=== PATIENT | female | born 1935 | race Two or more races ===

== ENCOUNTER 2024-04-09 15:28 | Emergency (ER) | payer SELFPAY ==
[~2024-04-09] VITALS: Ht 160 cm; Wt 81.8 kg
[2024-04-09 15:59] LABS: Basophils # (auto) 0 10 ^3/uL (0-0.2); Basophils % (auto) 0.5 % (0.0-2.0); Eosinophils # (auto) 0.1 10 ^3/uL (0-0.8); Eosinophils % (auto) 1.8 % (0.0-7.0); Hematocrit 37.2 % (36.0-46.0); Hemoglobin 12.5 g/dL (12.2-16.2); Lymphocytes # (auto) 0.9 10 ^3/uL (0.4-5.4); Lymphocytes % (auto) 27.2 % (10.0-50.0); Mean Corpuscular Hemoglobin 30.3 pg (28.0-32.0); Mean Corpuscular Hgb Conc. 33.6 g/dL (32.0-36.0); Monocytes # (auto) 0.2 10 ^3/uL (0-1.3); Monocytes % (auto) 7.4 % (0.0-12.0); Neutrophils % (auto) 63.1 % (37.0-80.0); Nucleated Red Blood Cells % 0.2 %; Red Blood Cells 4.14 10^6/uL (4.0-5.20); Red Cell Distribution Width 14.2 % (11.8-14.3); White Blood Cell 3.2 10^3/uL (4.4-10.8)
[2024-04-09 16:19] LABS: Alanine Aminotransferase 34 U/L (7-40); Albumin 4.1 g/dL (3.2-4.8); Alkaline Phosphatase 140 U/L (46-116); Anion Gap 6 (5-15); Aspartate Aminotransferase 49 U/L (13-40); BUN/Creatinine Ratio 14.7 (10.0-20.0); Bilirubin, Total 1.6 mg/dL (0.2-1.0); Blood Urea Nitrogen 10 mg/dL (9-23); Calcium 9.3 mg/dL (8.5-10.1); Carbon Dioxide 26 mmol/L (20-30); Chloride 108 mmol/L (98-107); Glucose 92 mg/dL (74-106); Potassium 3.6 mmol/L (3.5-5.1); Sodium 140 mmol/L (136-145); Total Protein 6.4 g/dL (5.7-8.2)
[2024-04-09] MEDS: SODIUM CHLORIDE 0.9% 1,000 ML IV ONE (16:21)
[2024-04-09] MEDS: ASPirin 81 mg TAB PO ONE (16:22)
[2024-04-09] MEDS: MECLIZINE HCL 25 MG TAB PO ONE (16:22)
[2024-04-09 16:24] LABS: INR 1.16 (0.9-1.15); Partial Thromboplastin Time 30.5 SEC (24.5-34.5); Prothrombin Time 12.2 sec (9.3-11.8)
[2024-04-09] MEDS ORDERED: ZOFR4T PO (20:38)
[2024-04-09 20:42] VITALS: BP 163/95; PULSE 79; RESP 16; TEMP 98.2; O2SAT 99
[2024-04-09] MEDS: ONDANSETRON ODT 4 MG TAB PO ONE (21:00)
== END 2024-04-09 21:02 | disposition home or self-care (01) ==
LOC: ER 15:28
DX: E86.0 Dehydration (principal); R07.89 Other chest pain; I10 Essential (primary) hypertension; E78.5 Hyperlipidemia, unspecified; F03.90 Unspecified dementia, unspecified severity, without behavioral disturbance, psychotic disturbance, mood disturbance, and anxiety; Z98.890 Other specified postprocedural states; Z79.899 Other long term (current) drug therapy
CPT/HCPCS: 36415; 71045; 80053; 82550; 84484; 85025; 85610; 85730; 93005; 96360; 96361; 99285; J7030; J8597; Q0162

== ENCOUNTER 2024-05-05 17:11 | Emergency (ER) | payer MEDICARE ==
[~2024-05-05] VITALS: Ht 157.5 cm; Wt 59.9 kg
[~2024-05-05 17:11] MED LIST: ZOFR4T PO
[2024-05-05 19:13] LABS: Basophils # (auto) 0 10 ^3/uL (0-0.2); Basophils % (auto) 0.4 % (0.0-2.0); Eosinophils # (auto) 0 10 ^3/uL (0-0.8); Eosinophils % (auto) 1.3 % (0.0-7.0); Hematocrit 38.8 % (36.0-46.0); Hemoglobin 12.9 g/dL (12.2-16.2); Lymphocytes # (auto) 0.9 10 ^3/uL (0.4-5.4); Lymphocytes % (auto) 26.4 % (10.0-50.0); Mean Corpuscular Hemoglobin 29.5 pg (28.0-32.0); Mean Corpuscular Hgb Conc. 33.2 g/dL (32.0-36.0); Monocytes # (auto) 0.3 10 ^3/uL (0-1.3); Neutrophils # (auto) 2.1 10 ^3/uL (1.6-8.6); Neutrophils % (auto) 61.9 % (37.0-80.0); Red Blood Cells 4.36 10^6/uL (4.0-5.20); Red Cell Distribution Width 14.6 % (11.8-14.3); White Blood Cell 3.4 10^3/uL (4.4-10.8)
[2024-05-05 19:26] LABS: Alanine Aminotransferase 11 U/L (7-40); Alkaline Phosphatase 137 U/L (46-116); Anion Gap 6 (5-15); Aspartate Aminotransferase 26 U/L (13-40); BUN/Creatinine Ratio 16.4 (10.0-20.0); Blood Urea Nitrogen 11 mg/dL (9-23); Calcium 9.5 mg/dL (8.7-10.4); Carbon Dioxide 25 mmol/L (20-30); Chloride 108 mmol/L (98-107); Glucose 96 mg/dL (74-106); Potassium 4.3 mmol/L (3.5-5.1); Sodium 139 mmol/L (136-145)
[2024-05-05 19:27] LABS: Albumin 4.2 g/dL (3.2-4.8); Bilirubin, Total 1.4 mg/dL (0.2-1.0); Total Protein 6.6 g/dL (5.7-8.2)
[2024-05-05 19:42] LABS: Urine Bacteria FEW /hpf (None Seen); Urine Blood 2+ /uL (Negative); Urine Clarity Clear (Clear); Urine Color Yellow (Yellow); Urine Hyaline Cast FEW /lpf (0 - 2); Urine Mucus FEW (None Seen); Urine Protein, UAD 1+ (Negative); Urine Urobilinogen 8 mg/dL (Negative); Urine WBC 69 /hpf (0 - 5)
[2024-05-05] MEDS ORDERED: DICL1GEL59 TOP (22:20)
[2024-05-05] MEDS ORDERED: CEPH500T PO (22:20)
[2024-05-05 22:40] VITALS: BP 156/109; PULSE 99; RESP 18; TEMP 98.4; O2SAT 99
[2024-05-05] MEDS: ACETAMINOPHEN 500 MG TAB PO ONE (22:46)
[2024-05-05] MEDS: hydrALAZINE HCL 10 MG TAB PO ONE (22:46)
[2024-05-05] MEDS: cefTRIAXone SOD 1,000 MG VL IM ONE (22:46)
== END 2024-05-05 23:17 | disposition home or self-care (01) ==
LOC: ER 17:11
DX: N39.0 Urinary tract infection, site not specified (principal); M25.512 Pain in left shoulder; I10 Essential (primary) hypertension; E78.5 Hyperlipidemia, unspecified; E03.9 Hypothyroidism, unspecified; Z90.49 Acquired absence of other specified parts of digestive tract; Z90.89 Acquired absence of other organs
CPT/HCPCS: 36415; 70450; 80053; 81001; 82962; 83880; 84484; 85025; 93005; 96372; 99285; J0696

== ENCOUNTER 2024-11-15 14:48 | Inpatient (IN) | payer OTHER ==
[~2024-11-15] VITALS: Ht 165.1 cm; Wt 63.9 kg
[~2024-11-15 14:48] MED LIST changes: +CEPH500T PO; +DICL1GEL59 TOP
--- NOTE | 2024-11-15 15:05 | ED.PDOC ---
History of Present Illness HPI Comments 89Y F with PMHx HTN, HLD, liver disease, thyroid disease, and dementia presents to ED via EMS for chief complaint back pain. Per EMS, pt had a fall last week while cleaning her home. Today, pt voiced to daughter that she felt weak. Pt's daughter then called 911. Upon ED arrival, pt denies all symptoms including back pain, chest pain, and SOB. However, pt was tender on rt upper thigh and lumbar spine. No other symptoms reported. Chief Complaint: Back Pain Time Seen by MD: 14:50 Reviewed Notes: Nurses Notes, Gun Mechanic Notes, Medications, Allergies Allergies: Coded Allergies: NO KNOWN ALLERGIES (Unverified , 05/05/24) Home Meds Active Scripts Diclofenac Sodium (Topical) (Voltaren Arthritis Pain) 1 % Gel, 1 % TOP Q8HP PRN, #100 GRAMS apply to L shoulder tid prn pain Prov:BHAVESH SANTANA MD 05/05/24 Cephalexin Monohydrate (Cephalexin) 500 Mg Tab, 1 TAB PO QID for 10 Days, #40 TAB Prov:BHAVESH SANTANA MD 05/05/24 Ondansetron Odt 4MG Tab (ZOFRAN PO) 4 Mg Tb, 4 MG PO BID for 5 Days, #10 TAB 0 Refills ODT TAB-DISSOLVE IN MOUTH, THEN SWALLOW Prov:DAVID CABAN MD 04/09/24 Information Source: Patient, Emergency Med Personnel Mode of Arrival: EMS Severity: Mild Timing: Hours Duration: Since onset Past Medical History PAST MEDICAL HISTORY: Dementia, High Lipids, HTN, Liver, Thyroid Surgical History: Appendectomy, Cholecystectomy ORTHOTIC TECHNICIAN History: No Pertinent ORTHOTIC TECHNICIAN History Family History Family History: Reviewed,noncontributory to illness Social History Smoker: Non-Smoker Alcohol: Denies ETOH Use Drugs: Denies Drug Use Lives In: Home Constitutional: denies: chills, diaphoresis, fatigue, fever, malaise, sweats, weakness, others EENTM: denies: blurred vision, double vision, ear bleeding, ear discharge, ear drainage, ear pain, ear ringing, eye pain, eye redness, hearing loss, mouth pain, mouth swelling, nasal discharge, nose bleeding, nose congestion, nose pain, photophobia, tearing, throat pain, throat swelling, voice changes, others Respiratory: denies: cough, hemoptysis, orthopnea, SOB at rest, shortness of breath, SOB with excertion, stridor, wheezing, others Cardiovascular: denies: chest pain, dizzy spells, diaphoresis, Dyspnea on exertion, edema, irregular heart beat, left arm pain, lightheadedness, palpitations, PND, syncope, others Gastrointestinal: denies: abdomen distended, abdominal pain, blood streaked bowels, constipated, diarrhea, dysphagia, difficulty swallowing, hematemesis, melena, nausea, poor appetite, poor fluid intake, rectal bleeding, rectal pain, vomiting, others Genitourinary: denies: abnormal vagina bleeding, burning, dyspareunia, dysuria, flank pain, frequency, hematuria, incontinence, pain, , vagina discharge, urgency, others Neurological: denies: dizziness, fainting, headache, left sided numbness, left sided weakness, numbness, paresthesia, pre-existing deficit, right sided numbness, right sided weakness, seizure, speech problems, tingling, tremors, weakness, others Musculoskeletal: reports: back pain; denies: gout, joint pain, joint swelling, muscle pain, muscle stiffness, neck pain, others Integumetry: denies: bruises, change in color, change in hair/nails, dryness, laceration, lesions, lumps, rash, wounds, others Allergic/Immunocompromised: denies: Difficulty Healing, Frequent Infections, Hives, Itching, others Hematologic/Lymphatic: denies: anemia, blood clots, easy bleeding, easy bruising, swollen glands, others Endocrine: denies: excessive hunger, excessive sweating, excessive thirst, excessive urination, flushing, intolerance to cold, intolerance to heat, unexplained weight gain, unexplained weight loss, others Psychiatric: denies: anxiety, bipolar disorder, depression, hopeless, panic disorder, schizophrenia, sleepless, suicidal, others All Other Systems: Reviewed and Negative Physical Exam General Appearance: No Apparent Distress, Normal HEENT: Normal ENT Inspection, Pharynx Normal, TMs Normal Neck: Full Range of Motion, Non-Tender, Normal, Normal Inspection Respiratory: Chest Non-Tender, Lungs Clear, No Accessory Muscle Use, No Respiratory Distress, Normal Breath Sounds Cardiovascular: No Edema, No JVD, No Murmur, No Gallop, Normal Peripheral Pulses, Regular Rate/Rhythm Breast Exam: Deferred Gastrointestinal: No Organomegaly, Non Tender, No Pulsatile Mass, Normal Bowel Sounds, Soft Genitalia: Deferred Pelvic: Deferred Rectal: Deferred Extremities: No calf tenderness, Normal capillary refill, Normal inspection, Normal range of motion, Non-tender, No pedal edema Musculoskeletal : Location: Right Extremity Location: Back (lumbar spine), Thigh Apperance: Normal, Tenderness Neurologic: Alert, director of claims II-XII nml as Tested, No Motor Deficits, Normal Affect, Normal Mood, No Sensory Deficits Cerebellar Function: Normal Reflexes: Normal Skin: Dry, Normal Color, Warm Lymphatic: No Adenopathy Was a procedure done? Was a procedure done?: No Differential Dx Considerations may include: compression fracture, pathologic fracture, herniated disc, contusions, sprain, neurologic injuries X-Ray, Labs, Meds, VS Vital Signs Date Time Temp Pulse Resp B/P (MAP) Pulse Ox O2 Delivery O2 Flow Rate FiO2 11/15/24 15:05 98.2 109 16 130/85 (100) [address] [place] [address] Ph: [phone] DIAGNOSTIC IMAGING Diagnostic Imaging Report : [id number] Signed PATIENT: LNYNE MENDEZ ACCT: [id number] UNIT: [id number] : 1935 LOC: ER ROOM / BED: / AGE / SEX: 89 / F ADM STATUS: REG ER SERVICE [id number] ORDERING PHYSICIAN: ANAND SALCEDO MD PROCEDURE(s): LUMB2 - LUMBAR SPINE 3 VIEW REASON: INJURY ORDER NUMBER(s): [id number], ACCESSION NUMBER(s): [id number] CLINICAL INDICATION: INJURY TECHNIQUE: 3 radiographic views of the lumbar spine were obtained. Comparison: None FINDINGS/IMPRESSION: 5 zme-fea-bzmzhlg lumbar-type vertebrae. Mild exaggeration of the lumbar lordosis. Compression fractures of T11, L1 and L2 with about 20% loss of vertebral body height of T11, 30% loss of vertebral body height of L1 and 10% loss of superior vertebral body height of L2 of unknown chronicity. MRI would be helpful to determine chronicity. Grade 1 retrolisthesis of L2 on L3 and L3 on L4. Multilevel moderate degenerative changes of the thoracic and lumbar spine. Diffuse demineralization. Phleboliths are noted within the pelvis. Moderate to large amount of fecal material within the visualized colon. ATED BY: NANI BAÑUELOS DO DICTATED DATE/TIME: 11/15/241542 SIGNED BY: NANI BAÑUELOS DO SIGNED DATE/TIME: 11/15/241542 CC: [place] [address] Ph: [phone] DIAGNOSTIC IMAGING Diagnostic Imaging Report : [id number] Signed PATIENT: LYNNE MENDEZ ACCT: [id number] UNIT: [id number] : 1935 LOC: ER ROOM / BED: / AGE / SEX: 89 / F ADM STATUS: REG ER SERVICE 145 ORDERING PHYSICIAN: ANAND SALCEDO MD PROCEDURE(s): PELVS - PELVIS AP REASON: INJURY ORDER NUMBER(s): [id number], ACCESSION NUMBER(s): [id number] CLINICAL INDICATION: INJURY TECHNIQUE: Goal radiographic view of the pelvis is obtained. Comparison: None FINDINGS/IMPRESSION: There is no evidence of acute fracture or dislocation. Nuir-iq-xzhwceeo degenerative changes bilateral hips. Diffuse demineralization. Moderate degenerative changes of the lower lumbar spine. Moderate to large amount of fecal material within the visualized colon. Phleboliths are noted within the pelvis. 12 mm calcified density overlying the left iliac wing which may represent a calcified injection granuloma. ATED BY: NANI BAÑUELOS DO DICTATED DATE/TIME: 11/15/241544 SIGNED BY: NANI BAÑUELOS DO SIGNED DATE/TIME: 11/15/24 154 CC: [place] [address] Ph: [phone] DIAGNOSTIC IMAGING Diagnostic Imaging Report : [id number] Signed PATIENT: LYNNE MENDEZ ACCT: [id number] UNIT: [id number] : 1935 LOC: ER ROOM / BED: / AGE / SEX: 89 / F ADM STATUS: REG ER SERVICE 145 ORDERING PHYSICIAN: ANAND SALCEDO MD PROCEDURE(s): RFEM - R FEMUR XRAY REASON: INJURY ORDER NUMBER(s): [id number], ACCESSION NUMBER(s): [id number] CLINICAL INDICATION: INJURY TECHNIQUE: 4 radiographic views of the right femur were obtained. Comparison: None FINDINGS/IMPRESSION: There is no evidence of acute fracture or dislocation. Mild degenerative changes of the right hip The alignment is anatomical. 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 ATED BY: NANI BAÑUELOS DO DICTATED DATE/TIME: 11/15/241545 SIGNED BY: NANI BAÑUELOS DO SIGNED DATE/TIME: 11/15/241545 CC: Time of 1ST Reevaluation: 15:20 Reevaluation 1ST: Unchanged Patient Education/Counseling: Diagnosis, Treatment, Prognosis, Need For Follow Up Family Education/Counseling: Diagnosis, Treatment, Prognosis, Need For Follow Up, No Family Present Additional Information I reviewed the following notes from patient's past medical encounters: [facility] ER 05/05/2024, 04/09/2024 The following tests were ordered, and results were reviewed by me: pelvic x-ray, rt femur x-ray, l-spine x-ray Additional Information was gathered from interviewing the following independent historians: EMS I reviewed and agreed with the following test results read by other providers: pelvic x-ray, rt femur x-ray, l-spine x-ray I discussed treatment and results with medical personnel. pt has not suffered an acute fracture. she has T11-L1,L2 mild compression fractures of unknown chronicity, however, daughter is the lone nonfarm animal caretaker and does not feel comfortable caring for her without another fall. she is requesting for pt eval, hospice eval, and possible placement, if pt's pain cannot be managed and she is not able to improve to the point of going home to be cared for by her Departure 1 Departure Time of Disposition: 16:47 Impression: Primary Impression: Falling Additional Impressions: Compression fracture Intractable back pain Disposition: ADMITTED INPATIENT Admit to: Med Surg Condition: Stable Discharged With: Self, Relative Critical Care Note Critical Care Time?: Yes (55 min-critical care time only) Critical care comment: Due to concerns for patients condition deteriorating, the care required my highest level of attention and readiness to intervene. I assessed the patient, reviewed the medical records, ordered the appropriate tests and treatments, then reassessed for results and responsiveness. I communicated with medical personnel and consultants and formulated a plan of care. Total critical care time excludes any procedures Stability Stability form required: No Heart Score Heart Score: Heart Score Response (Comments) Value History N/A 0 EKG N/A 0 Age N/A 0 Risk Factors N/A 0 Troponin N/A 0 Total 0 I personally scribed for ANAND SALCEDO MD ([email or web address]) on 11/15/24 at 15:05. Electronically submitted by Rachel Easley [email or web address]). I personally scribed for ANAND SALCEDO MD ([email or web address]) on 11/15/24 at 15:50. Electronically submitted by Rachel Easley [email or web address]). I personally scribed for ANAND SALCEDO MD ([email or web address]) on 11/15/24 at 15:51. Electronically submitted by Rachel Easley [email or web address]). I personally scribed for ANAND SALCEDO MD (TAMMI) on 11/15/24 at 15:53. Electronically submitted by Rachel Easley [email or web address]). ANAND SALCEDO MD Nov 15, 2024 15:05
--- NOTE | 2024-11-15 15:46 | DVH ---
CLINICAL INDICATION: INJURY TECHNIQUE: 3 radiographic views of the lumbar spine were obtained. Comparison: None FINDINGS/IMPRESSION: 5 ydw-jso-xfilbqu lumbar-type vertebrae. Mild exaggeration of the lumbar lordosis. Compression fractu res of T11, L1 and L2 with about 20% loss of vertebral body height of T11, 30% loss of vertebral body height of L1 and 10% loss of superior vertebral body height of L2 of unknown chronicity. MRI would b e helpful to determine chronicity. Grade 1 retrolisthesis of L2 on L3 and L3 on L4. Multilevel moderate degenerative changes of the tho racic and lumbar spine. Diffuse demineralization. Phleboliths are noted within the pelvis. Moderate to large amount of fecal material within the visual ized colon.
--- NOTE | 2024-11-15 15:47 | DVH ---
CLINICAL INDICATION: INJURY TECHNIQUE: Goal radiographic view of the pelvis is obtained. Comparison: None FINDINGS/IMPRESSION: There is no evidence of acute fracture or dislocation. Fcor-ow-xntngwxz degenerative changes bilateral hips. Diffuse demineralization. Moderate degenerative changes of the lower lumbar spine. Moderate to large amount of fecal material within the visualized colon. Phleboliths are noted within the pelvis. 12 mm calcified density overlying the left iliac wing which may represent a calcified injection granuloma.
--- NOTE | 2024-11-15 15:48 | DVH ---
CLINICAL INDICATION: INJURY TECHNIQUE: 4 radiographic views of the right femur were obtained. Comparison: None FINDINGS/IMPRESSION: There is no evidence of acute fracture or dislocation. Mild degenerative changes of the right hip The alignment is anatomical. 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
[2024-11-15] MEDS: ONDANSETRON HCL 4 MG/2 ML VIAL IV ONE (18:02)
[2024-11-15] MEDS: MORPHINE SULFATE INJ 2 MG/ml SYRG IV ONE (18:08)
[2024-11-15 18:21] LABS: Basophils # (auto) 0 10 ^3/uL (0-0.2); Basophils % (auto) 0.3 % (0.0-2.0); Eosinophils # (auto) 0 10 ^3/uL (0-0.8); Eosinophils % (auto) 0.8 % (0.0-7.0); Hematocrit 36.3 % (36.0-46.0); Lymphocytes % (auto) 27.6 % (10.0-50.0); Mean Corpuscular Hemoglobin 31.3 pg (28.0-32.0); Mean Corpuscular Hgb Conc. 33.2 g/dL (32.0-36.0); Mean Corpuscular Volume 94.5 fL (80.0-100.0); Monocytes # (auto) 0.3 10 ^3/uL (0-1.3); Neutrophils # (auto) 2.4 10 ^3/uL (1.6-8.6); Neutrophils % (auto) 63.3 % (37.0-80.0); Platelet Count (auto) 132 10^3/uL (140-450); Red Blood Cells 3.84 10^6/uL (4.0-5.20); Red Cell Distribution Width 17.7 % (11.8-14.3); White Blood Cell 3.7 10^3/uL (4.4-10.8)
[2024-11-15 18:31] LABS: Chloride 106 mmol/L (98-107); Sodium 139 mmol/L (136-145)
[2024-11-15 18:32] LABS: Anion Gap 10 (5-15); Carbon Dioxide 23 mmol/L (20-31)
[2024-11-15 18:33] LABS: Calcium 9.6 mg/dL (8.7-10.4)
[2024-11-15 18:37] LABS: BUN/Creatinine Ratio 12.8 (10.0-20.0); Blood Urea Nitrogen 10 mg/dL (9-23); Glucose 89 mg/dL (74-106)
[2024-11-15 18:39] LABS: Potassium 3.4 mmol/L (3.5-5.1)
--- NOTE | 2024-11-15 21:24 | DVHHPRES ---
History of Present Illness Resident Creating Document: NBA SCHULER RESIDENT History of Present Illness This is a 89 years old female with past medical history of hypertension, hyperlipidemia, thyroid disease, depression, dementia presented to the ED with a chief complaint of back pain status post mechanical fall for 1 week prior to this admission. According to the son the patient fall 1 week ago and after fall she is complaining of lower back pain, constant 9/10, nonradiating and associated with generalized weakness and constipation. Son also mentioned they wants to discuss the hospice evaluation of the patient. The patient denies headache, blurry vision, chest pain, shortness of breath, abdominal pain, nausea, vomiting, dysuria, hematuria. Past Medical History Hypertension, depression, dementia, GERD Past Surgical History Appendectomy, stomach surgery Family History None Past Social History Lives with son Nonsmoker, nonalcoholic and never tried any drugs Review of Systems Constitutional: Yes: Weakness; No: Fever, Chills, Sweats, Malaise, Other Eyes: No: Pain, Vision change, Conjunctivae inflammation, Eyelid inflammation, Other, Redness ENT: No: Ear pain, Ear discharge, Nose pain, Nose discharge, Nose congestion, Mouth pain, Mouth swelling, Throat pain, Throat swelling, Other Respiratory: No: Cough, Dry, Shortness of breath, SOB with excertion, Wheezing, Hemoptysis, Pleuritic Pain, Sputum, Wheezing, Other Cardiovascular: Lt Headedness; No: Chest Pain, Palpitations, Orthopnea, Pa roxysmal Noc. Dyspnea, Edema, Other Gastrointestinal: Constipation Genitourinary: No Dysuria, No Frequency, No Incontinence, No Hematuria, No Retention, No Other Musculoskeletal: back pain; No: other, neck pain, shoulder pain, arm pain, hand pain, leg pain, foot pain Skin: No: Rash, Lesions, Jaundice, Bruising, Other Neurological: No: Weakness, Numbness, Incoordination, Change in speech, Confusion, Seizures, Other Allergies: Coded Allergies: NO KNOWN ALLERGIES (Unverified , 05/05/24) Exam Vital Signs Vital Signs Date Time Temp Pulse Resp B/P (MAP) Pulse Ox O2 Delivery O2 Flow Rate FiO2 11/15/24 20:26 98.3 88 112/72 (85) 97 98.3 11/15/24 18:09 20 Exam Physical examination: General Appearance: Alert, Oriented X2, Cooperative, No acute distress HEENT: Atraumatic, PERRLA, EOMI, Mucous membrane moist/pink Respiratory: Clear to auscultation, Normal air movement Cardiovascular: Regular rate, Normal S1, Normal S2, No murmurs, no chest wall tenderness Abdominal: Normal bowel sounds, Soft, No tenderness, No hepatospenomegaly, No masses Extremities: No clubbing, No cyanosis, No edema, Normal pulses, No tenderness/swelling Skin: No rashes, No breakdown, No significant lesion Neuro: Use walker Normal speech, Strength at 5/5 X4 ext, Normal tone, Sensation intact, grossly intact cranial nerves Labs/Xrays Labs Test 11/15/24 18:03 Range/Units White Blood Count 3.7 L 4.4-10.8 10^3/uL Red Blood Count 3.84 L 4.0-5.20 10^6/uL Hemoglobin 12.0 L 12.2-16.2 g/dL Hematocrit 36.3 36.0-46.0 % Mean Corpuscular Volume 94.5 80.0-100.0 fL Mean Corpuscular Hemoglobin 31.3 28.0-32.0 pg Mean Corpuscular Hemoglobin Concent 33.2 32.0-36.0 g/dL Red Cell Distribution Width 17.7 H 11.8-14.3 % Platelet Count 132 L 140-450 10^3/uL Mean Platelet Volume 7.2 6.9-10.8 fL Neutrophils (%) (Auto) 63.3 37.0-80.0 % Lymphocytes (%) (Auto) 27.6 10.0-50.0 % Monocytes (%) (Auto) 8.0 0.0-12.0 % Eosinophils (%) (Auto) 0.8 0.0-7.0 % Basophils (%) (Auto) 0.3 0.0-2.0 % Neutrophils # (Auto) 2.4 1.6-8.6 10 ^3/uL Lymphocytes # (Auto) 1.0 0.4-5.4 10 ^3/uL Monocytes # (Auto) 0.3 0-1.3 10 ^3/uL Eosinophils # (Auto) 0 0-0.8 10 ^3/uL Basophils # (Auto) 0 0-0.2 10 ^3/uL Nucleated Red Blood Cells 0.0 % Sodium Level 139 136-145 mmol/L Potassium Level 3.4 L 3.5-5.1 mmol/L Chloride Level 106 98-107 mmol/L Carbon Dioxide Level 23 20-31 mmol/L Anion Gap 10 5-15 Blood Urea Nitrogen 10 9-23 mg/dL Creatinine 0.78 0.550-1.02 mg/dL Glomerular Filtration Rate Calc 73 >90 mL/min BUN/Creatinine Ratio 12.8 10.0-20.0 Serum Glucose 89 74-106 mg/dL Calcium Level 9.6 8.7-10.4 mg/dL Assessment/Plan Assessment/Plan Assessment and plan: # Intractable back pain, s/p mechanical fall - Plain xray of femur, pelvis and lumbosacral spines demonstrated no acute fracture or dislocation. Compression fracture of T11, L1, L2 and multilevel moderate degenerative changes of thoracic and lumbar spine and diffuse deminera lization. Chondrocalcinosis of hip and knee joint. - IV Toradol 15 mg once - [place] 5/325 mg Q 6 p.r.n. # Possible severe hypothyroidism - TSH is 34.14 - Ordered T3 and T4. # Hypokalemia - Replenished # GERD - Protonix 40 mg p.o. daily # Alzheimer's dementia - Continue Donepezil 5 mg daily and memantine 5 mg daily # DVT prophylaxis - Lovenox 40 mg sc daily Plan discussed with Dr. Hurtado Plan discussed with: Patient, Other Date of Service: Nov 15, 2024 Billing Provider: SAM HURTADO MD Common Visit Codes: 71011-QMSWJBP INP/OBS CARE (HIGH) Secondary Visit Codes: 85997-[id number] CARE PLAN 30 MINUTES [employer] SCHULER RESIDENT Nov 15, 2024 21:24 SAM HURTADO MD Nov 16, 2024 20:50
[2024-11-15] MEDS: KETOROLAC TROMETH 30 MG/ML 1ML VIAL IV ONE (22:59)
[2024-11-15] MEDS: LACTULOSE 20Gm/30ML SOLN PO ONE (22:59)
[2024-11-15] MEDS: POTASSIUM EFFERVESENT TAB 25 MEQ PO ONE (22:59)
[2024-11-15] MEDS: DOCUSATE SOD 100 MG CAP PO SCH (22:59)
[2024-11-15] MEDS: ACETAMINOPHEN 500 MG TAB or CAP PO ONE (23:00)
[2024-11-16] VITALS (8 sets, daily range): BP systolic 110–148; BP diastolic 63–80; PULSE 72–80; RESP 16–18; TEMP 97.8–98.8; O2SAT 93–99
--- NOTE | 2024-11-16 08:27 | DVH ---
CHEST RADIOGRAPH Indication: chest pain Technique: Single frontal view of the chest was obtained COMPARISON: XY CHEST PORTABLE on DOS: 04/09/24 FINDINGS: Lines and Tubes: None Lungs: Clear Pleura: No effusion. No pneumothorax. Cardiomediastinal contours: Unremarkable Bones: Unremarkable IMPRESSION: No acute disease.
[2024-11-16 09:05] LABS: Free T3 2.75 pg/mL (2.3-4.2)
[2024-11-16 09:06] LABS: Free T4 (Free Thyroxine) 0.57 ng/dL (0.89-1.76)
[2024-11-16] MEDS: MEMANTINE HCL 5 MG TAB PO SCH (09:15)
[2024-11-16] MEDS: PANTOPRAZOLE 40 MG TAB PO SCH (09:16)
[2024-11-16] MEDS: ENOXAPARIN SOD 40 MG/0.4 ML SYRINGE SC SCH (09:16)
[2024-11-16] MEDS: LEVOTHYROXINE SODIUM 25 MCG TAB PO ONE (09:30)
[2024-11-16] MEDS: DOCUSATE SOD 100 MG CAP PO ONE (09:30)
[2024-11-16 11:09] LABS: % Iron Saturation 14.6 % (15-50)
[2024-11-16 11:58] LABS: Potassium 4.3 mmol/L (3.5-5.1); Sodium 142 mmol/L (136-145)
[2024-11-16 12:00] LABS: Calcium 9.2 mg/dL (8.7-10.4)
[2024-11-16 12:02] LABS: Chloride 109 mmol/L (98-107)
[2024-11-16 12:03] LABS: Anion Gap 5 (5-15); Carbon Dioxide 28 mmol/L (20-31)
[2024-11-16 12:04] LABS: BUN/Creatinine Ratio 16.7 (10.0-20.0); Blood Urea Nitrogen 14 mg/dL (9-23); Glucose 94 mg/dL (74-106)
[2024-11-16 12:40] LABS: Urine Bacteria FEW /hpf (None Seen); Urine Blood 2+ /uL (Negative); Urine Color Yellow (Yellow); Urine Mucus FEW (None Seen); Urine Protein, UAD TRACE (Negative); Urine Specific Gravity 1.031 (1.001-1.035); Urine Squamous Epithelial Cell FEW /hpf (<5); Urine Urobilinogen 12 mg/dL (Negative); Urine WBC 20 /hpf (0 - 5)
[2024-11-16 12:44] LABS: Urine Clarity Cloudy (Clear)
[2024-11-16] MEDS: HYDROcodone-ACET 5/325MG TAB PO PRN (15:25)
[2024-11-16] MEDS: cefTRIAXone 1GM/50ML D5W 50 ML IV ONE (15:44)
[2024-11-16] MEDS: SERTRALINE HCL 50 MG TAB PO ONE (15:58)
[2024-11-16] MEDS: busPIRone HCL 10 MG TAB PO ONE (15:58)
--- NOTE | 2024-11-16 17:21 | DVHDSRES ---
Discharge Summary Date of Admission Resident Creating Document: CROW BERNAL RESIDENT Nov 15, 2024 at 21:23 Date of Discharge: Nov 16, 2024 Admitting Diagnosis Intractable back pain Labs/Diagnostic Data: Laboratory Results Test 11/16/24 16:50 11/16/24 09:19 11/16/24 07:48 11/15/24 18:03 Urine Color Yellow (Yellow) Urine Clarity Cloudy (Clear) Urine pH 6.0 (5.0-9.0) Urine Specific [place] 1.031 (1.001-1.035) Urine Protein Trace (Negative) Urine Ketones Negative (Negative) Urine Blood 2+ /uL (Negative) Urine Nitrite Negative (Negative) Urine Bilirubin Negative (Negative) Urine Urobilinogen 12 mg/dL (Negative) Urine Leukocyte Esterase 2+ /uL (Negative) Urine RBC 237 /hpf (0 - 4) Urine WBC 20 /hpf (0 - 5) Urine Squamous Epithelial Cells Few /hpf (<5) Urine Calcium Oxalate Crystals Many (None Seen) Urine Bacteria Few /hpf (None Seen) Urine Mucus Few (None Seen) Urine Glucose Normal mg/dL (Normal) Sodium Level 142 mmol/L (136-145) Potassium Level 4.3 mmol/L (3.5-5.1) Chloride Level 109 mmol/L (98-107) Carbon Dioxide Level 28 mmol/L (20-31) Anion Gap 5 (5-15) Blood Urea Nitrogen 14 mg/dL (9-23) Creatinine 0.84 mg/dL (0.550-1.02) Glomerular Filtration Rate Calc 67 mL/min (>90) BUN/Creatinine Ratio 16.7 (10.0-20.0) Serum Glucose 94 mg/dL (74-106) Calcium Level 9.2 mg/dL (8.7-10.4) Iron Level 39 ug/dL (50-170) Total Iron Binding Capacity 268 ug/dL (250-425) Percent Iron Saturation 14.6 % (15-50) Vitamin B12 Level 1108 pg/mL (211-911) Free Thyroxine (T4) Calculated 0.57 ng/dL (0.89-1.76) Free Triiodothyronine (T3) pg/mL 2.75 pg/mL (2.3-4.2) White Blood Count 3.7 10^3/uL (4.4-10.8) Red Blood Count 3.84 10^6/uL (4.0-5.20) Hemoglobin 12.0 g/dL (12.2-16.2) Hematocrit 36.3 % (36.0-46.0) Mean Corpuscular Volume 94.5 fL (80.0-100.0) Mean Corpuscular Hemoglobin 31.3 pg (28.0-32.0) Mean Corpuscular Hemoglobin Concent 33.2 g/dL (32.0-36.0) Red Cell Distribution Width 17.7 % (11.8-14.3) Platelet Count 132 10^3/uL (140-450) Mean Platelet Volume 7.2 fL (6.9-10.8) Neutrophils (%) (Auto) 63.3 % (37.0-80.0) Lymphocytes (%) (Auto) 27.6 % (10.0-50.0) Monocytes (%) (Auto) 8.0 % (0.0-12.0) Eosinophils (%) (Auto) 0.8 % (0.0-7.0) Basophils (%) (Auto) 0.3 % (0.0-2.0) Neutrophils # (Auto) 2.4 10 ^3/uL (1.6-8.6) Lymphocytes # (Auto) 1.0 10 ^3/uL (0.4-5.4) Monocytes # (Auto) 0.3 10 ^3/uL (0-1.3) Eosinophils # (Auto) 0 10 ^3/uL (0-0.8) Basophils # (Auto) 0 10 ^3/uL (0-0.2) Nucleated Red Blood Cells 0.0 % Hemoglobin A1c 5.2 % A1C (<5.7) Thyroid Stimulating Hormone (TSH) 34.14 uIU/mL (0.55-4.78) Other Laboratory Tests 11/16/24 07:48 11/15/24 18:03 Brief Hx & Hospital Course: HPI 89 year old female patient with past medical history of hypertension, hyperlipidemia, hypothyroidism, major depressive disorder, dementia, anxiety, depression who presented to the emergency department with a chief complaint of back pain status post mechanical fall for 1 week prior to admission. Pain was localized in the lower back , 9/10 intensity and nonradiating associated with generalized weakness and constipation. Hospital course Family was looking for some hospice services for which social service director were consulted. Patient was re-evaluate in the afternoon , she was having mild discomfort in the chest likely related with an anxiety episode as she also has history of anxiety and depression, she is currently on home medications for it, buspirone and Zoloft. Urinalysis showed bacteriuria for which the patient was started on ceftriaxone IV. Family wanted to discuss the possibility to send the patient to hospice for which social service director services were ordered in regards of that topic. [facility] patient will be accepted and he will follow up with patient's son regarding transport. Disposition: Patient is stable for discharge to hospice. Case discussed with Dr. Barber Goals of care discussed with the patient for 29 minutes. Operations or Procedures [place] [address] Ph: [phone] DIAGNOSTIC IMAGING Diagnostic Imaging Report : [id number] Signed PATIENT: LYNNE MENDEZ ACCT: [id number] UNIT: [id number] : 1935 LOC: ER ROOM / BED: / AGE / SEX: 89 / F ADM STATUS: REG ER SERVICE 1450 ORDERING PHYSICIAN: ANAND SALCEDO MD PROCEDURE(s): RFEM - R FEMUR XRAY REASON: INJURY ORDER NUMBER(s): [id number], ACCESSION NUMBER(s): [id number] CLINICAL INDICATION: INJURY TECHNIQUE: 4 radiographic views of the right femur were obtained. Comparison: None FINDINGS/IMPRESSION: There is no evidence of acute fracture or dislocation. Mild degenerative changes of the right hip The alignment is anatomical. 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 ATED BY: NANI BAÑUELOS DO DICTATED DATE/TIME: 11/15/24 154 SIGNED BY: NANI BAÑUELOS DO SIGNED DATE/TIME: 11/15/24 154 CC: [place] [address] Ph: [phone] DIAGNOSTIC IMAGING Diagnostic Imaging Report : [id number] Signed PATIENT: LYNNE MENDEZ ACCT: [id number] UNIT: [id number] : 1935 LOC: ER ROOM / BED: / AGE / SEX: 89 / F ADM STATUS: REG ER SERVICE 49 ORDERING PHYSICIAN: ANAND SALCEDO MD PROCEDURE(s): LUMB2 - LUMBAR SPINE 3 VIEW REASON: INJURY ORDER NUMBER(s): [id number], ACCESSION NUMBER(s): [id number] CLINICAL INDICATION: INJURY TECHNIQUE: 3 radiographic views of the lumbar spine were obtained. Comparison: None FINDINGS/IMPRESSION: 5 [id number] lumbar-type vertebrae. Mild exaggeration of the lumbar lordosis. Compression fractures of T11, L1 and L2 with about 20% loss of vertebral body height of T11, 30% loss of vertebral body height of L1 and 10% loss of superior vertebral body height of L2 of unknown chronicity. MRI would be helpful to determine chronicity. Grade 1 retrolisthesis of L2 on L3 and L3 on L4. Multilevel moderate degenerative changes of the thoracic and lumbar spine. Diffuse demineralization. Phleboliths are noted within the pelvis. Moderate to large amount of fecal material within the visualized colon. ATED BY: NANI BAÑUELOS DO DICTATED DATE/TIME: 11/15/24 154 SIGNED BY: NANI BAÑUELOS DO SIGNED DATE/TIME: 11/15/24 154 CC: [place] [address] Ph: [phone] DIAGNOSTIC IMAGING Diagnostic Imaging Report : [id number] Signed PATIENT: LYNNE MENDEZ ACCT: [id number] UNIT: [id number] : 1935 LOC: ER ROOM / BED: / AGE / SEX: 89 / F ADM STATUS: REG ER SERVICE 49 ORDERING PHYSICIAN: ANAND SALCEDO MD PROCEDURE(s): PELVS - PELVIS AP REASON: INJURY ORDER NUMBER(s): [id number], ACCESSION NUMBER(s): [id number] CLINICAL INDICATION: INJURY TECHNIQUE: Goal radiographic view of the pelvis is obtained. Comparison: None FINDINGS/IMPRESSION: There is no evidence of acute fracture or dislocation. [id number] degenerative changes bilateral hips. Diffuse demineralization. Moderate degenerative changes of the lower lumbar spine. Moderate to large amount of fecal material within the visualized colon. Phleboliths are noted within the pelvis. 12 mm calcified density overlying the left iliac wing which may represent a calcified injection granuloma. ATED BY: NANI BAÑUELOS DO DICTATED DATE/TIME: 11/15/241544 SIGNED BY: NANI BAÑUELOS DO SIGNED DATE/TIME: 11/15/241544 CC: [place] [address] Ph: [phone] DIAGNOSTIC IMAGING Diagnostic Imaging Report : [id number] Signed PATIENT: LYNNE MENDEZ ACCT: [id number] UNIT: [id number] : 1935 LOC: [facility] ROOM / BED: [address] [place] [address] AGE / SEX: 89 / F ADM STATUS: ADM IN SERVICE 42 ORDERING PHYSICIAN: NBA SCHULER RESIDENT PROCEDURE(s): CXR1 - CHEST XRAY 1 VIEW REASON: chest pain ORDER NUMBER(s): [id number], ACCESSION NUMBER(s): [id number] CHEST RADIOGRAPH Indication: chest pain Technique: Single frontal view of the chest was obtained COMPARISON: XY CHEST PORTABLE on DOS: 04/09/24 FINDINGS: Lines and Tubes: None Lungs: Clear Pleura: No effusion. No pneumothorax. Cardiomediastinal contours: Unremarkable Bones: Unremarkable IMPRESSION: No acute disease. ATED BY: OCTAVIO TSAI MD DICTATED DATE/TIME: 11/16/24824 SIGNED BY: OCTAVIO TSAI MD SIGNED DATE/TIME: 11/16/24824 CC: Condition at Discharge: Fair Final Diagnosis/Problems List hypertension hyperlipidemia hypothyroidism major depressive disorder, Alzheimer's dementia Generalized anxiety Major depressive disorder Compression fracture of T11, L1, L2 and multilevel moderate degenerative changes of thoracic and lumbar spine and diffuse demineralization. Chondrocalcinosis of hip and knee joint. Hypokalemia,resolved GERD Discharge Disposition: Hospice - Home SNF Discharge Will this Physician continue t: No Discharge Instruct/Medications Diet: Cardiac 2g Na,low cholest Activity: No Restrictions, As Tolerated Discharge Statement: "Patient was advised to return to the ER or call 911 if any headaches, dizziness, shortness of breath, chest pain, abdominal pain, bleeding, fevers, or worsening of medical condition. Patient was counseled about treatment plan, medications, possible side effects, patientverbalized understanding. All questions were answered to the best of my ability. This discharge took greater then 30 minutes in planning, reviewing documentation, counseling the patient, and discussing with other team members." ASSESSMENT ASSESSMENT Assessment alzheimer disease Date of Service: Nov 16, 2024 Billing Provider: FANNIE BARBER MD Common Visit Codes: 24751-RLF/OBS DISCH DAY >30min Secondary Visit Codes: 54570-[id number] CARE PLAN 30 MINUTES CROW BERNAL RESIDENT Nov 16, 2024 17:21 FANNIE BARBER MD Nov 18, 2024 18:19
[2024-11-16] MEDS ORDERED: DONEPEZIL HYDROCHLORIDE 5 MG TAB PO SCH ×2 (22:00)
[2024-11-16] MEDS ORDERED: busPIRone HCL 10 MG TAB PO SCH (22:00)
[2024-11-17] MEDS ORDERED: LEVOTHYROXINE SODIUM 25 MCG TAB PO SCH (06:00)
[2024-11-17] MEDS ORDERED: cefTRIAXone 1GM/50ML D5W 50 ML IV SCH (09:00)
[2024-11-17] MEDS ORDERED: SERTRALINE HCL 50 MG TAB PO SCH (10:00)
== END 2024-11-16 17:17 | disposition hospice, home (50) | DRG 544 ==
LOC: ER 14:48 → EDBD 14:48 → OVERFLOW 21:23 → WEST WING 21:24
PROVIDERS: ADMIT Internal Medicine Geriatric Medicine; ATTEND Internal Medicine Geriatric Medicine
DX: M48.55XA Collapsed vertebra, not elsewhere classified, thoracolumbar region, initial encounter for fracture (principal); I10 Essential (primary) hypertension; E78.5 Hyperlipidemia, unspecified; E87.6 Hypokalemia; K21.9 Gastro-esophageal reflux disease without esophagitis; G30.9 Alzheimer's disease, unspecified; F02.80 Dementia in other diseases classified elsewhere, unspecified severity, without behavioral disturbance, psychotic disturbance, mood disturbance, and anxiety; E03.9 Hypothyroidism, unspecified; F41.1 Generalized anxiety disorder; F32.9 Major depressive disorder, single episode, unspecified; Z90.49 Acquired absence of other specified parts of digestive tract
CPT/HCPCS: 36415; 71045; 72100; 72170; 80048; 81001; 82607; 83036; 83540; 83550; 84439; 84443; 84481; 84484; 85025; 97163; 99291; G0378; J1885; J2405

== ENCOUNTER 2025-02-25 12:08 | Inpatient (IN) | payer OTHER ==
[~2025-02-25] VITALS: Ht 160 cm; Wt 49.5 kg
--- NOTE | 2025-02-25 12:11 | ED.PDOC ---
Hero. trauma (HPI) HPI Comments 89 year old female with PMHx of dementia, liver failure and HTN, presents to the ED via EMS for an evaluation of two unwitnessed falls recently. EMS reports per family on scene, patient was found on the floor at home last night and this morning in the bathroom as well. Family state patient is more altered than usual with EMS declaring A&O x 1 and appears more jaundiced as well. Patient presents with a hematoma to the posterior side of the head and is complaining of bilateral leg pain. No further information obtained due to no family at bedside and patient's mental status. Time Seen by MD: 12:04 Reviewed notes: Nurses Notes, .Net Architect Notes, Medications, Allergies Allergies: Coded Allergies: NO KNOWN ALLERGIES (Unverified , 05/05/24) Home Meds Active Scripts Diclofenac Sodium (Topical) (Voltaren Arthritis Pain) 1 % Gel, 1 % TOP Q8HP PRN, #100 GRAMS apply to L shoulder tid prn pain Prov:BHAVESH SANTANA MD 05/05/24 Cephalexin Monohydrate (Cephalexin) 500 Mg Tab, 1 TAB PO QID for 10 Days, #40 TAB Prov:BHAVESH SANTANA MD 05/05/24 Ondansetron Odt 4MG Tab (ZOFRAN PO) 4 Mg Tb, 4 MG PO BID for 5 Days, #10 TAB 0 Refills ODT TAB-DISSOLVE IN MOUTH, THEN SWALLOW Prov:DAVID CABAN MD 04/09/24 Information Source: Emergency Med Personnel Mode of Arrival: EMS Severity: Moderate Timing: Hours Duration: Since onset Location: (L) Leg, (R) Leg Mechanism: Fall Associated signs and symtoms: Other Past Medical History PAST MEDICAL HISTORY: Dementia, High Lipids, HTN, Liver, Thyroid Surgical History: Appendectomy, Cholecystectomy DESIGN ASSISTANT History: No Pertinent DESIGN ASSISTANT History Family History Family History: Reviewed,noncontributory to illness Social History Smoker: Non-Smoker Alcohol: Denies ETOH Use Drugs: Denies Drug Use Lives In: Home Unable to Obtain due to: Altered Mental Status, Dementia Physical Exam General Appearance: Moderate Distress HEENT: Normal ENT Inspection, Pharynx Normal, TMs Normal Neck: Full Range of Motion, Non-Tender, Normal, Normal Inspection Respiratory: Chest Non-Tender, Lungs Clear, No Accessory Muscle Use, No Respiratory Distress, Normal Breath Sounds Cardiovascular: No Edema, No JVD, No Murmur, No Gallop, Normal Peripheral Pulses, Regular Rate/Rhythm Breast Exam: Deferred Gastrointestinal: No Organomegaly, Non Tender, No Pulsatile Mass, Normal Bowel Sounds, Soft Genitalia: Deferred Pelvic: Deferred Rectal: Deferred Extremities: No calf tenderness, No pedal edema Musculoskeletal : Apperance: Normal Neurologic: Disoriented, No Motor Deficits, No Sensory Deficits Cerebellar Function: NOT DONE Reflexes: NOT DONE Skin: Wounds (Scalp) Peripheral Pulses: 3+ Radial (R), 3+ Radial (L) Lymphatic: No Adenopathy Was a procedure done? Was a procedure done?: Yes Sedation Sedation?: No Chest Tube Indication: Pneumothorax, Hemothorax Procedure: Sterile preparation Anesthetic: Lidocaine Site: R 5th intercostal space, R Mid Axillary Drainage: Blood, Air Notes 350 mL serous fluid had drained. Differential Diagnosis Multiple Trauma: Closed Head Injury, Fractures, Cerebral Contusion, Pulmonary Contusion, Contusion, Hematoma X-Ray, Labs, Meds, VS Vital Signs Date Time Temp Pulse Resp B/P (MAP) Pulse Ox O2 Delivery O2 Flow Rate FiO2 02/25/25 14:17 107 10 126/79 02/25/25 13:47 100 16 154/95 02/25/25 12:51 100 14 94 Room Air* 0 21 02/25/25 12:51 98.1 100 15 141/94 (110) 94 98.1 02/25/25 12:22 98.1 100 16 154/95 (114) 96 98.1 Lab Test 02/25/25 14:40 02/25/25 13:59 02/25/25 13:04 Range/Units Urine Color Dark-yellow Yellow Urine Clarity Clear Clear Urine pH 6.5 5.0-9.0 Urine Specific [place] 1.027 1.001-1.035 Urine Protein Trace H Negative Urine Ketones 1+ H Negative Urine Blood Negative Negative /uL Urine Nitrite Negative Negative Urine Bilirubin Negative Negative Urine Urobilinogen Over Negative mg/dL Urine Leukocyte Esterase 2+ Negative /uL Urine RBC 17 0 - 4 /hpf Urine Microscopic WBC 12 H 0-5 /HPF Urine Squamous Epithelial Cells Few <5 /hpf Urine Bacteria None seen None Seen /hpf Urine Mucus Few None Seen Urine Glucose Normal Normal mg/dL Troponin I High Sensitivity 4 4 </=34 ng/L White Blood Count 4.1 L 4.4-10.8 10^3/uL Red Blood Count 3.72 L 4.0-5.20 10^6/uL Hemoglobin 11.7 L 12.2-16.2 g/dL Hematocrit 34.7 L 36.0-46.0 % Mean Corpuscular Volume 93.4 80.0-100.0 fL Mean Corpuscular Hemoglobin 31.4 28.0-32.0 pg Mean Corpuscular Hemoglobin Concent 33.6 32.0-36.0 g/dL Red Cell Distribution Width 17.1 H 11.8-14.3 % Platelet Count 147 140-450 10^3/uL Mean Platelet Volume 7.4 6.9-10.8 fL Neutrophils (%) (Auto) 72.2 37.0-80.0 % Lymphocytes (%) (Auto) 18.1 10.0-50.0 % Monocytes (%) (Auto) 8.3 0.0-12.0 % Eosinophils (%) (Auto) 1.1 0.0-7.0 % Basophils (%) (Auto) 0.3 0.0-2.0 % Neutrophils # (Auto) 2.9 1.6-8.6 10 ^3/uL Lymphocytes # (Auto) 0.7 0.4-5.4 10 ^3/uL Monocytes # (Auto) 0.3 0-1.3 10 ^3/uL Eosinophils # (Auto) 0 0-0.8 10 ^3/uL Basophils # (Auto) 0 0-0.2 10 ^3/uL Nucleated Red Blood Cells 0.1 % Sodium Level 139 136-145 mmol/L Potassium Level 3.3 L 3.5-5.1 mmol/L Chloride Level 105 98-107 mmol/L Carbon Dioxide Level 26 20-31 mmol/L Anion Gap 8 5-15 Blood Urea Nitrogen 14 9-23 mg/dL Creatinine 0.50 L 0.550-1.02 mg/dL Glomerular Filtration Rate Calc 90 >90 mL/min BUN/Creatinine Ratio 28.0 H 10.0-20.0 Serum Glucose 89 74-106 mg/dL Calcium Level 9.3 8.7-10.4 mg/dL Current Medications Medications (Trade) Dose Ordered Sig/Tali Route Start Time Stop Time Status Last Admin Lorazepam (Ativan Inj) 1 mg ONCE ONCE IV 02/25/25 13:30 02/25/25 13:33 DC 02/25/25 13:46 Morphine Sulfate 2 mg ONCE ONCE IV 02/25/25 13:30 02/25/25 13:33 DC 02/25/25 13:47 Ondansetron HCl (Zofran) 4 mg ONCE ONCE IV 02/25/25 13:30 02/25/25 13:33 DC 02/25/25 13:47 Haloperidol Lactate (Haldol) 5 mg ONCE ONCE IM 02/25/25 14:30 02/25/25 14:31 DC 02/25/25 14:30 Lorazepam (Ativan Inj) 1 mg ONCE ONCE IV 02/25/25 14:30 02/25/25 14:31 DC 02/25/25 14:30 Patient is slightly disoriented. Status post fall. Vitals stable. Moving all extremities. Scalp wound. She is not on blood thinner. Family member state that she was fine until few days ago. Reviewed her history. Continue monitoring. Chest x-ray reviewed pneumothorax pain Chest tube placed. It is actually pneumo with hemo. 350 cc of fluid was drained. Tolerated the procedure. Surgical consultation. Explained to family. [place] approved inpatient admission [id number]. EXAM: CT HEAD WITHOUT CONTRAST INDICATION: fall TECHNIQUE: CT of the head without intravenous contrast. Coronal and sagittal reformatted images are submitted. Radiation Dose : 1. Head: CT Dose: CTDI volume is 50.87 mGy. Dose-length product is 1002.63 mGy*cm The dose indicators for CT are the volume Computed Tomography (CT) Dose Index (CTDIvol) and the Dose Length Product (DLP), and are measured in units of mGy and mGy-cm, respectively. These indicators are not patient dose, but values generated from the CT scanner acquisition factors. The report includes radiation exposure data for exposures received during this examination. All CT scans at this medical facility are performed using dose modulation techniques as appropriate to a performed exam including the following: Automated exposure control was utilized; adjustment of the MA and/or KV according to patient size; and use of iterative reconstruction technique. COMPARISON: CT HEAD WITHOUT CONTRAST on DOS: 05/05/24 FINDINGS: There is no evidence of acute intracranial hemorrhage, extra-axial collection, mass effect, midline shift, herniation or hydrocephalus. There are periventricular and subcortical hypodensities, nonspecific, but likely reflecting sequelae of chronic microvascular ischemic changes. The ventricles, sulci and cisterns are age appropriate. The wright-white differentiation is intact. The visualized paranasal sinuses and mastoid air cells are clear. No depressed calvarial fracture. Right posterior scalp soft tissue swelling and hematoma. IMPRESSION: 1. No evidence of acute intracranial abnormality. 2. Right posterior scalp swelling and hematoma. : XY PELVIS AP CLINICAL INDICATION: fall TECHNIQUE: XY PELVIS AP Comparison: XY PELVIS AP on DOS: 11/15/24 FINDINGS/IMPRESSION: foreshortened right femoral neck. CT suggested : XY CHEST PORTABLE HISTORY: sob COMPARISON: XY CHEST XRAY 1 VIEW on DOS: 11/16/24, XY CHEST PORTABLE on DOS: 04/09/24 TECHNIQUE: Portable AP view of the chest was performed. FINDINGS: There is hazy infiltrate in the right mid to lower lung. There is blunting of the right costophrenic angle. There is a tiny right apical pneumothorax.. There is central peribronchial thickening. The heart is borderline enlarged. The aortic arch is calcific. 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 The right humeral head is high-riding, consistent with significant rotator cuff tendinopathy. There is a displaced right distal clavicle fracture. There is a mildly displaced fracture of the right 7th rib, possibly also right 8th rib. IMPRESSION: Acute fractures of the right distal clavicle, right 7th rib, and possibly also right 8th rib. There is associated tiny right apical pneumothorax. Right basilar infiltrate may be due to atelectasis or lung contusion. There is a small right pleural effusion versus hemothorax. Findings were called to Dr. Silva in the emergency room on 02/25/2025 at 3:08 p.m. CDT. Time of 1ST Reevaluation: 12:10 Reevaluation 1ST: Unchanged Patient Education/Counseling: Other (Patient has history of dementia and appears more altered ) Family Education/Counseling: No Family Present Departure 1 Departure Time of Disposition: 12:25 Impression: Primary Impression: Metabolic encephalopathy Additional Impressions: Head injury Qualified Codes: S09.90XA - Unspecified injury of head, initial encounter Pneumothorax with hemothorax, traumatic Qualified Codes: S27.2XXA - Traumatic hemopneumothorax, initial encounter Rib fracture Qualified Codes: S22.41XA - Multiple fractures of ribs, right side, initial encounter for closed fracture Clavicle fracture Qualified Codes: S42.021A - Displaced fracture of shaft of right clavicle, initial encounter for closed fracture Femur fracture Qualified Codes: S72.91XA - Unspecified fracture of right femur, initial encounter for closed fracture Disposition: ADMITTED INPATIENT Admit to: Med Surg Condition: Guarded Critical Care Note Critical Care Time?: Yes (45 min-critical care time only) Critical care comment: Monitoring for alertness Stability Stability form required: No I personally scribed for RICKIE SILVA MD ([email or web address]) on 02/25/25 at 12:11. Electronically submitted by Mary Damon ([facility]). I personally scribed for RICKIE SILVA MD ([email or web address]) on 02/25/25 at 14:36. Electronically submitted by Mary Damon ([facility]). RICKIE SILVA MD Feb 25, 2025 12:11
[2025-02-25 12:51] VITALS: PULSE 100; RESP 14; O2SAT 94
--- NOTE | 2025-02-25 12:52 | DVH ---
EXAM: CT HEAD WITHOUT CONTRAST INDICATION: fall TECHNIQUE: CT of the head without intravenous contrast. Coronal and sagittal reformatted images are s ubmitted. Radiation Dose : 1. Head: CT Dose: CTDI volume is 50.87 mGy. Dose-length product is 1002.63 mGy*cm The dose indicators for CT are the volume Computed Tomography (CT) Dose Index (CTDIvol) and the Dose Length Product (DLP), and are measured in units of mGy and mGy-cm, respectively. These indicators are not patient dose, but values generated from the CT scanner acquisition factors. The report includes radiation exposure data for exposures received during this examination. All CT scans at this medical facility are performed using dose modulation techniques as appropriate to a performed exam including the following: Automated exposure control was utilized; adjustment of the MA and/or KV according to patient size; and use of iterative reconstruction technique. COMPARISON: CT HEAD WITHOUT CONTRAST on DOS: 05/05/24 FINDINGS: There is no evidence of acute intracranial hemorrhage, extra-axial collection, mass effect, midline s hift, herniation or hydrocephalus. There are periventricular and subcortical hypodensities, nonspecific, but likely reflecting sequelae of chronic microvascular ischemic changes. The ventricles, sulci and cisterns are age appropriate. The wright-white differentiation is intact. The visualized paranasal sinuses and mastoid air cells are clear. No depressed calvarial fracture. Right posterior scalp soft tissue swelling and hematoma. IMPRESSION: 1. No evidence of acute intracranial abnormality. 2. Right posterior scalp swelling and hematoma.
--- NOTE | 2025-02-25 13:13 | DVH ---
EXAM: XY CHEST PORTABLE HISTORY: sob COMPARISON: XY CHEST XRAY 1 VIEW on DOS: 11/16/24, XY CHEST PORTABLE on DOS: 04/09/24 TECHNIQUE: Portable AP view of the chest was performed. FINDINGS: There is hazy infiltrate in the right mid to lower lung. There is blunting of the right costophrenic angle. There is a tiny right apical pneumothorax.. There is central peribronchial thickening. The he art is borderline enlarged. The aortic arch is calcific. There is a left shoulder reverse total arthr oplasty. The right humeral head is high-riding, consistent with significant rotator cuff tendinopath y. There is a displaced right distal clavicle fracture. There is a mildly displaced fracture of the r ight 7th rib, possibly also right 8th rib. IMPRESSION: Acute fractures of the right distal clavicle, right 7th rib, and possibly also right 8th rib. There i s associated tiny right apical pneumothorax. Right basilar infiltrate may be due to atelectasis or ramandeep ng contusion. There is a small right pleural effusion versus hemothorax. Findings were called to Dr. Felix in the emergency room on 02/25/2025 at 3:08 p.m. CDT.
--- NOTE | 2025-02-25 13:18 | DVH ---
EXAM: XY PELVIS AP CLINICAL INDICATION: fall TECHNIQUE: XY PELVIS AP Comparison: XY PELVIS AP on DOS: 11/15/24 FINDINGS/IMPRESSION: foreshortened right femoral neck. CT suggested
[2025-02-25 13:26] LABS: Basophils # (auto) 0 10 ^3/uL (0-0.2); Basophils % (auto) 0.3 % (0.0-2.0); Eosinophils # (auto) 0 10 ^3/uL (0-0.8); Eosinophils % (auto) 1.1 % (0.0-7.0); Hematocrit 34.7 % (36.0-46.0); Hemoglobin 11.7 g/dL (12.2-16.2); Lymphocytes # (auto) 0.7 10 ^3/uL (0.4-5.4); Lymphocytes % (auto) 18.1 % (10.0-50.0); Mean Corpuscular Hemoglobin 31.4 pg (28.0-32.0); Mean Corpuscular Hgb Conc. 33.6 g/dL (32.0-36.0); Mean Corpuscular Volume 93.4 fL (80.0-100.0); Monocytes # (auto) 0.3 10 ^3/uL (0-1.3); Monocytes % (auto) 8.3 % (0.0-12.0); Neutrophils # (auto) 2.9 10 ^3/uL (1.6-8.6); Neutrophils % (auto) 72.2 % (37.0-80.0); Nucleated Red Blood Cells % 0.1 %; Platelet Count (auto) 147 10^3/uL (140-450); Red Blood Cells 3.72 10^6/uL (4.0-5.20); Red Cell Distribution Width 17.1 % (11.8-14.3); White Blood Cell 4.1 10^3/uL (4.4-10.8)
[2025-02-25 13:34] LABS: Chloride 105 mmol/L (98-107); Sodium 139 mmol/L (136-145)
[2025-02-25 13:35] LABS: Anion Gap 8 (5-15); Calcium 9.3 mg/dL (8.7-10.4); Carbon Dioxide 26 mmol/L (20-31)
[2025-02-25 13:40] LABS: Blood Urea Nitrogen 14 mg/dL (9-23); Glucose 89 mg/dL (74-106); Potassium 3.3 mmol/L (3.5-5.1)
[2025-02-25] MEDS: LORazepam 2MG/ML-1ML VIAL IV ONE ×2 (13:46→14:30)
[2025-02-25] MEDS: ONDANSETRON HCL 4 MG/2 ML VIAL IV ONE ×2 (13:47→20:55)
[2025-02-25] MEDS: MORPHINE SULFATE INJ 2 MG/ml SYRG IV ONE (13:47)
[2025-02-25] MEDS: HALOPERIDOL LACTATE 5 MG/ML INJ VIAL ONE ×2 (14:29→17:54)
[2025-02-25] MEDS: HALOPERIDOL LACTATE 5 MG/ML INJ VIAL IM ONE ×3 (14:30→20:41)
[2025-02-25 14:47] LABS: Urine Bacteria None Seen /hpf (None Seen)
[2025-02-25 15:32] LABS: Urine Blood Negative /uL (Negative); Urine Clarity Clear (Clear); Urine Color Dark-Yellow (Yellow); Urine Mucus FEW (None Seen); Urine Protein, UAD TRACE (Negative); Urine Specific Gravity 1.027 (1.001-1.035); Urine Squamous Epithelial Cell FEW /hpf (<5); Urine Urobilinogen OVER mg/dL (Negative); Urine WBC 12 /HPF (0-5); Urine pH 6.5 (5.0-9.0)
--- NOTE | 2025-02-25 16:49 | DVH ---
EXAM: XY CHEST XRAY 1 VIEW HISTORY: SERIAL FOR PNEUMO COMPARISON: XY CHEST PORTABLE on DOS: 02/25/25, XY CHEST XRAY 1 VIEW on DOS: 11/16/24, XY CHEST PORTABL E on DOS: 04/09/24 TECHNIQUE: Portable supine AP view of the chest was performed. FINDINGS: Probable increased size of right pneumothorax, not well characterized with supine imaging. There are hazy opacities in the right mid to lower lung. No left pneumothorax or new left lung infiltrates. Ce ntral interstitial prominence is re-identified. The heart is upper limits of normal in size. Left s houlder arthroplasty is re-identified. Right distal clavicle resection and right 7th rib fracture see n on recent chest x-ray are not well characterized here. IMPRESSION: 1. Probable increased size of right pneumothorax, difficult to well characterized on this supine AP f ilm. Recommend follow-up upright chest x-ray for better characterization. 2. Right mid to lower lung hazy opacity and central interstitial prominence re-identified.
[2025-02-25] MEDS: LIDOCAINE 1% HCL (LOCAL ANESTH.) INJ 20ML MDV ID ONE (17:00)
[2025-02-25] MEDS: LIDOCAINE 1% HCL (LOCAL ANESTH.) INJ 20ML MDV ONE (17:06)
[2025-02-25] MEDS: MORPHINE SULFATE 4 MG/ML SYR/VIAL IV ONE ×2 (17:28→20:42)
[2025-02-25] MEDS: MORPHINE SULFATE 4 MG/ML SYR/VIAL ONE (17:54)
--- NOTE | 2025-02-25 19:12 | DVH ---
EXAM: CT CHEST WITHOUT CONTRAST History: hemothorax, right apical pneumothorax Comparison Study: None available TECHNIQUE: Multidetector CT of the chest was performed. Imaging was performed without IV contrast. Ax ial, coronal, and sagittal multiplanar reformats were obtained from the axial data set by the technol ogsharon. Radiation Dose : CTDI vol 9.73 mGy, DLP 771.6 mGy*cm. Findings: Lungs: Small right pneumothorax, approximately 10-15%. Right lower lobe atelectasis. Large bore chest tube terminating near the right apex. Pleura: Unremarkable Heart/Great vessels: No cardiomegaly or pericardial effusion. Mediastinum: Unremarkable Soft tissues/Bones: Moderate multilevel degenerative changes of the thoracic spine. Mild compression fracture of T9. Moderate wedge-shaped compression fracture of T11 and L1. No retropulsion. The partially visualized upper abdomen is within normal limits. Impression: 1. Small right pneumothorax, approximately 10-15%. No definite hemothorax. 2. Right lower lobe atelectasis.
--- NOTE | 2025-02-25 19:29 | DVH ---
EXAM: CT CT R HIP WITH OUT CONTRAST INDICATION: hip fracture EXAM DATE: 02/25/2025 06:12 PM COMPARISON: None TECHNIQUE: Multiple axial CT images of the right hip were obtained using bone algorithm. Axial and co tawana reformatting was done. Bone and soft tissue windows were reviewed. Radiation Dose Information: CT Dose: CTDI volume is 9.73 mGy. Dose-length product is 771.6 mGy*cm Findings: There is no evidence of an acute fracture, dislocation, blastic, or lytic lesions. No radiopaque foreign bodies. No joint effusion or superficial soft tissue abnormalities. Impression: 1. No evidence of an acute fracture.
--- NOTE | 2025-02-25 21:02 | DVHHPRES ---
History of Present Illness Resident Creating Document: CIARA FRANKS RESIDENT History of Present Illness Laurie Quintero 89-year-old female patient who presents to ED brought by EMS with chief complaint of mechanical fall associated with altered mental status. Due to clinical status, could not obtain review of systems, obtain information from EMR. EMS reports per family on scene, patient was found on the floor at home less than and this morning as well, family states that the patient is more altered than usual (A&O x1), she appears more jaundice as well. Patient presents hematoma posterior side of her head been complaining of bilateral leg pain. Past medical history: Hypertension, dyslipidemia, hypothyroidism, major depressive disorder, Alzheimer's dementia, anxiety, liver failure, history of multiple falls with previous admissions, GERD, chondrocalcinosis of hip and knee joint, compression fracture T11, L1, L2 Surgical history appendectomy, cholecystectomy Family history: Noncontributory Social history: Patient was on home hospice with family. Denies current tobacco, alcohol and other drug abuse Allergies: Denies Home medication: Diclofenac topical cream, Zofran Patient seen and examined at bedside. Patient is still altered (orientated only one sphere in person). Does not have any new complaints. Past Medical History HPI Past Surgical History Per HPI Family History Per HPI Past Social History Per HPI Review of Systems Review of Systems Per HPI Allergies: Coded Allergies: NO KNOWN ALLERGIES (Unverified , 05/05/24) Exam Vital Signs Vital Signs Date Time Temp Pulse Resp B/P (MAP) Pulse Ox O2 Delivery O2 Flow Rate FiO2 02/25/25 20:42 109 18 133/109 02/25/25 20:00 100 02/25/25 12:51 Room Air* 0 21 02/25/25 12:51 98.1 98.1 Exam Patient lying in bed, in no acute distress General: Lucid, afebrile, mucosae are dry, presents icteric mucus and conjunctivae Cardiovascular: Tachycardic, Normal S1 and S2. No murmurs, gallops or rubs Respiratory: Regular ventilation mechanics, tachypnea. Decreased lung sounds on right hemithorax, rest of lung sounds normal on auscultation. Has subcutaneous emphysema on right hemithorax. Presents chest tube on right hemithorax with hematocrit debit of approximately 200 mL Abdomen: Soft, nontender, no organomegaly, normal bowel sounds MSK/skin: Mobilizes 4 limbs. Skin is dry and warm : Has Daniels placed, no hematuria Neurological: Oriented in 3 spheres. No motor no sensitive deficits. Pupils are isocoric and reactive Labs/Xrays Labs Test 02/25/25 14:40 02/25/25 13:59 02/25/25 13:04 Range/Units Urine Color Dark-yellow Yellow Urine Clarity Clear Clear Urine pH 6.5 5.0-9.0 Urine Specific Leonardo 1.027 1.001-1.035 Urine Protein Trace H Negative Urine Ketones 1+ H Negative Urine Blood Negative Negative /uL Urine Nitrite Negative Negative Urine Bilirubin Negative Negative Urine Urobilinogen Over Negative mg/dL Urine Leukocyte Esterase 2+ Negative /uL Urine RBC 17 0 - 4 /hpf Urine Microscopic WBC 12 H 0-5 /HPF Urine Squamous Epithelial Cells Few <5 /hpf Urine Bacteria None seen None Seen /hpf Urine Mucus Few None Seen Urine Glucose Normal Normal mg/dL Troponin I High Sensitivity 4 </=34 ng/L White Blood Count 4.1 L 4.4-10.8 10^3/uL Red Blood Count 3.72 L 4.0-5.20 10^6/uL Hemoglobin 11.7 L 12.2-16.2 g/dL Hematocrit 34.7 L 36.0-46.0 % Mean Corpuscular Volume 93.4 80.0-100.0 fL Mean Corpuscular Hemoglobin 31.4 28.0-32.0 pg Mean Corpuscular Hemoglobin Concent 33.6 32.0-36.0 g/dL Red Cell Distribution Width 17.1 H 11.8-14.3 % Platelet Count 147 140-450 10^3/uL Mean Platelet Volume 7.4 6.9-10.8 fL Neutrophils (%) (Auto) 72.2 37.0-80.0 % Lymphocytes (%) (Auto) 18.1 10.0-50.0 % Monocytes (%) (Auto) 8.3 0.0-12.0 % Eosinophils (%) (Auto) 1.1 0.0-7.0 % Basophils (%) (Auto) 0.3 0.0-2.0 % Neutrophils # (Auto) 2.9 1.6-8.6 10 ^3/uL Lymphocytes # (Auto) 0.7 0.4-5.4 10 ^3/uL Monocytes # (Auto) 0.3 0-1.3 10 ^3/uL Eosinophils # (Auto) 0 0-0.8 10 ^3/uL Basophils # (Auto) 0 0-0.2 10 ^3/uL Nucleated Red Blood Cells 0.1 % Sodium Level 139 136-145 mmol/L Potassium Level 3.3 L 3.5-5.1 mmol/L Chloride Level 105 98-107 mmol/L Carbon Dioxide Level 26 20-31 mmol/L Anion Gap 8 5-15 Blood Urea Nitrogen 14 9-23 mg/dL Creatinine 0.50 L 0.550-1.02 mg/dL Glomerular Filtration Rate Calc 90 >90 mL/min BUN/Creatinine Ratio 28.0 H 10.0-20.0 Serum Glucose 89 74-106 mg/dL Calcium Level 9.3 8.7-10.4 mg/dL Assessment/Plan Assessment/Plan Assessment: Right pneumothorax - status post chest tube placement 7th right rib fracture complicated by right pneumothorax Mechanical fall mechanism unknown UTI Cephalohematoma Ruled out intracranial hemorrhage Alzheimer's dementia Hypertension Dyslipidemia Hypothyroidism History of Major depressive disorder History of Liver disease Plan: Completed multiple radiographic imaging. Positive findings include small right hip pneumothorax seen in chest x-ray and chest CT. ED doctor placed chest tube on right hemithorax. Chest tube dab it shows 200 mL of serosanguineous fluid Head CT showed no intracranial pathology, only subcutaneous hematoma. Patient currently NPO. Patient currently on empiric IV antibiotic (ceftriaxone) due to UTI Continue home medication Goals of care could not be discussed with patient due to altered mental status. Able to talk to son (Zan Quintero, who is the next of kin), who decides to comfort care, code status DNR and DNI, modified (yes IV vasopressors and non invasive medication). He also says that he wants no other chest tubes. Discussed plan with Dr. Hurtado, patient and nurses: Patient currently with chest tube placed, Patient unstable to transferred to [place], obtain authorization for admission Critical care time spent including discussion with nursin minutes Plan discussed with: Patient, Other (Nurses) Date of Service: Feb 25, 2025 Billing Provider: SAM HURTADO MD Common Visit Codes: [id number] INP/OBS CARE (HIGH) Secondary Visit Codes: 80063-YEHONNNE CARE PLAN 30 MINUTES CIARA FRANKS RESIDENT Feb 25, 2025 21:02 SAM HURTADO MD Feb 26, 2025 20:57
[2025-02-25 22:37] LABS: Total Protein 6.3 g/dL (5.7-8.2)
[2025-02-25 22:38] LABS: Phosphorus 3.5 mg/dL (2.4-5.1)
[2025-02-25 22:44] LABS: INR 1.12 (0.9-1.15); Partial Thromboplastin Time 29.7 SEC (24.5-34.5); Prothrombin Time 11.7 sec (9.3-11.8)
[2025-02-25 22:52] LABS: Bilirubin, Direct 1.8 mg/dL (<0.3); Bilirubin, Total 3.9 mg/dL (0.2-1.0)
[2025-02-25] MEDS: MORPHINE SULFATE INJ 2 MG/ml SYRG IV PRN (23:34)
[2025-02-26] MEDS: HALOPERIDOL LACTATE 5 MG/ML INJ VIAL IM ONE (02:48)
[2025-02-26] MEDS: SODIUM CHLORIDE 0.9% 500 ML IV ONE (03:25)
[2025-02-26] MEDS: SODIUM CHLORIDE 0.9% 1,000 ML IV SCH (03:30)
[2025-02-26] MEDS: POTASSIUM CHL 20MEQ/50ML 50 ML IV SCH (03:44)
[2025-02-26] MEDS: MORPHINE SULFATE INJ 2 MG/ml SYRG IV ONE (05:08)
[2025-02-26 06:09] LABS: Basophils # (auto) 0 10 ^3/uL (0-0.2); Basophils % (auto) 0.2 % (0.0-2.0); Eosinophils # (auto) 0 10 ^3/uL (0-0.8); Eosinophils % (auto) 0.4 % (0.0-7.0); Hemoglobin 11.4 g/dL (12.2-16.2); Lymphocytes # (auto) 0.3 10 ^3/uL (0.4-5.4); Lymphocytes % (auto) 9.7 % (10.0-50.0); Mean Corpuscular Hemoglobin 31.4 pg (28.0-32.0); Mean Corpuscular Hgb Conc. 33.5 g/dL (32.0-36.0); Mean Corpuscular Volume 93.8 fL (80.0-100.0); Monocytes # (auto) 0.3 10 ^3/uL (0-1.3); Monocytes % (auto) 9.9 % (0.0-12.0); Neutrophils # (auto) 2.3 10 ^3/uL (1.6-8.6); Neutrophils % (auto) 79.8 % (37.0-80.0); Platelet Count (auto) 114 10^3/uL (140-450); Red Blood Cells 3.63 10^6/uL (4.0-5.20); Red Cell Distribution Width 16.5 % (11.8-14.3); White Blood Cell 2.9 10^3/uL (4.4-10.8)
[2025-02-26 06:27] LABS: Alanine Aminotransferase 11 U/L (7-40); Albumin 3.7 g/dL (3.2-4.8); Anion Gap 11 (5-15); BUN/Creatinine Ratio 33.3 (10.0-20.0); Blood Urea Nitrogen 15 mg/dL (9-23); Calcium 8.9 mg/dL (8.7-10.4); Carbon Dioxide 25 mmol/L (20-31); Chloride 106 mmol/L (98-107); Glucose 102 mg/dL (74-106); Potassium 3.6 mmol/L (3.5-5.1); Sodium 142 mmol/L (136-145); Total Protein 5.7 g/dL (5.7-8.2)
[2025-02-26 06:29] LABS: Alkaline Phosphatase 201 U/L (46-116); Aspartate Aminotransferase 41 U/L (13-40); Bilirubin, Total 3.3 mg/dL (0.2-1.0)
--- NOTE | 2025-02-26 12:21 | DVHPN2 ---
Progress Note Date Seen: Feb 26, 2025 Medical Necessity Reason Pt with a Central, PICC or Fol: Yes The following are medically ne: Read Catheter Reason for read catheter: Strict I&O Subjective Patient reports: No new complaints Review of Systems: HEENT:Normal, CVS:Normal, RESPIRATORY:Normal, GI:Normal, :Normal, MSK:Normal, NEURO:Normal Objective vital signs Vital Sign Date Time Temp Pulse Resp B/P (MAP) Pulse Ox O2 Delivery O2 Flow Rate FiO2 02/26/25 11:52 98 12 103/87 02/26/25 10:00 98 02/26/25 08:00 98.0 98.0 02/25/25 19:30 Room Air* 0 21 Total Intake and Output 02/25/25 02/25/25 02/26/25 15:00 23:00 07:00 Intake Total 664.62311 ml Output Total 60 ml Balance 604.52326 ml medications Current Medications Medications Dose Ordered Sig/Tali Route Start Time Stop Time Status Last Admin Dose Admin Acetaminophen 650 mg Q6HP PRN PO 02/25/25 21:00 Ondansetron HCl 4 mg Q4HP PRN IV 02/25/25 21:00 Morphine Sulfate 2 mg Q4HPRN PRN IV 02/25/25 21:00 02/26/25 11:52 2 MG Sodium Chloride 1,000 ml @ 60 mls/hr [id number] IV 02/26/25 03:30 02/26/25 03:30 60 MLS/HR Lorazepam 0.5 mg Q8HP PRN IV 02/26/25 12:15 Levothyroxine Sodium 100 mcg DAILY IV 02/27/25 10:00 UNV Examination: GENERAL:Normal, HEENT:Normal, NECK:Normal, LUNGS:Normal, LUNGS:Abnormal (right chest tube), CVS:Normal, ABDOMEN:Normal, MSK:Normal, SKIN:Normal, NEURO:Normal, NEURO:Abnormal (confused), :Normal laboratory and microbiology Laboratory Tests 02/26/25 05:45 Test 02/26/25 05:45 Range/Units Serum Glucose 102 74-106 mg/dL Problem List/Assessment/Plan Problem List/Assessment/Plan #1 s/p fall with right clavicle/ right rib fractures #2 right pneumo s/p chest tube #3 liver failure ?liver cirrhosis #4 encephalopathy- metabolic #5 dementia #6 h/o lumber compression fractures #7 uncontrolled hypothyroidism: iv levothyroxine #8 htn #9 thrombocytopenia #10 right scalp hematoma long dw daughter- reviewed labs and plan of care advance care planning- chemical code- time spent 19mins Plan discussed with: Patient, Daughter My Orders My Orders Orders - PADILLA OWENS MD Procedure Category Date Status Time Lorazepam 2mg/Ml Inj PHA 02/26/25 In Process (Ativan Inj) 12:15 Clear Liq Diet DIET 02/26/25 Transmitted Lunch Basic Metabolic Panel LAB 02/27/25 Verified 06:00 Complete Blood Count LAB 02/27/25 Verified 06:00 Chest Portable XY 02/27/25 Logged 06:00 Levothyroxine PHA 02/26/25 Logged Injection (Synthroid 12:15 Levothyroxine PHA 02/27/25 Logged Injection (Synthroid 10:00 Date of Service: Feb 26, 2025 Billing Provider: PADILLA OWENS MD Common Visit Codes: [id number] INP/OBS CARE(HIGH) Secondary Visit Codes: 82889-[id number] CARE PLAN 30 MINUTES PADILLA OWENS MD Feb 26, 2025 12:20
[2025-02-26] MEDS: LEVOTHYROXINE SODIUM 100 MCG/5 ML INJ IV ONE (12:34)
--- NOTE | 2025-02-26 12:56 | DVHSR ---
APPROVED REPORT EXAM: LIMITED Two-dimensional and M-mode echocardiogram with Doppler and color Doppler. Blood Pressure: 140/84 mmHg INDICATION Polytrauma RISK FACTORS Height: 5'3, Weight: 110 DIMENSIONS EF (%) 65.0 (55-70%)Rt. Atrium3.5 (1.9-4.0cm)Asc. Aorta cm Mitral Valve MitralMitral Stenosis E wave0.82m/sMV Mean GR.4mmHg A wave1.44m/sMV Peak GR.146mmHg E/A ratio0.62D MVAcm2 DECEL [id number] 1/2 Timems Aortic Valve Aortic ValveAortic Stenosis V11.16m/Samia Mean GR.mmHg V21.65m/Samia Peak GR.11mmHg LVOT Diameter1.5 (1.8-2.4cm)Doppler AVA1.24cm2 Tricuspid Valve TR Velocity3.24m/s [id number] Other Information Quality : Technically LimitedRhythm : Technically limited study due to pt altered, moving, swinging probe away Conclusion LVEF 60-65%, LVH RV function normal mitral valve thickened with annular calcification, no stenosis Moderate pulmonary hypertension RVSP 50-55 mmgh
[2025-02-26] MEDS: LORazepam 2MG/ML-1ML VIAL IV PRN (13:51)
[2025-02-26] MEDS: ONDANSETRON HCL 4 MG/2 ML VIAL IV PRN (19:22)
[2025-02-26 20:00] VITALS: PULSE 98; RESP 13; O2SAT 100
[2025-02-27] MEDS: HALOPERIDOL LACTATE 5 MG/ML INJ VIAL IM ONE (02:00)
[2025-02-27 02:01] VITALS: PULSE 89; RESP 12; O2SAT 96
[2025-02-27 05:12] LABS: Basophils # (auto) 0 10 ^3/uL (0-0.2); Basophils % (auto) 0.1 % (0.0-2.0); Eosinophils # (auto) 0 10 ^3/uL (0-0.8); Eosinophils % (auto) 0.4 % (0.0-7.0); Hematocrit 37.9 % (36.0-46.0); Hemoglobin 12.8 g/dL (12.2-16.2); Lymphocytes # (auto) 0.4 10 ^3/uL (0.4-5.4); Lymphocytes % (auto) 8.6 % (10.0-50.0); Mean Corpuscular Hemoglobin 31.4 pg (28.0-32.0); Mean Corpuscular Hgb Conc. 33.8 g/dL (32.0-36.0); Monocytes # (auto) 0.4 10 ^3/uL (0-1.3); Monocytes % (auto) 7.7 % (0.0-12.0); Neutrophils % (auto) 83.2 % (37.0-80.0); Nucleated Red Blood Cells % 0.1 %; Platelet Count (auto) 174 10^3/uL (140-450); Red Blood Cells 4.08 10^6/uL (4.0-5.20); Red Cell Distribution Width 16.8 % (11.8-14.3); White Blood Cell 4.9 10^3/uL (4.4-10.8)
[2025-02-27 05:17] LABS: Chloride 106 mmol/L (98-107); Potassium 3.7 mmol/L (3.5-5.1); Sodium 139 mmol/L (136-145)
[2025-02-27 05:18] LABS: Anion Gap 13 (5-15); Carbon Dioxide 20 mmol/L (20-31)
[2025-02-27 05:19] LABS: Calcium 9.2 mg/dL (8.7-10.4)
[2025-02-27 05:24] LABS: BUN/Creatinine Ratio 18.9 (10.0-20.0)
[2025-02-27 05:34] LABS: Blood Urea Nitrogen 7 mg/dL (9-23); Glucose 111 mg/dL (74-106)
--- NOTE | 2025-02-27 06:03 | DVH ---
EXAM: XR Chest, 1 View CLINICAL INDICATION: RIGHT PNEUMO TECHNIQUE: Frontal view of the chest. COMPARISON: XY CHEST XRAY 1 VIEW on DOS: 02/25/25, XY CHEST PORTABLE on DOS: 02/25/25, XY CHEST XRAY 1 VIEW on DOS: 11/16/24, XY CHEST PORTABLE on DOS: 04/09/24 FINDINGS: LUNGS AND PLEURAL SPACES: Right basilar atelectasis. HEART: Unremarkable. No cardiomegaly. MEDIASTINUM: Unremarkable. Normal mediastinal contour. BONES/JOINTS: Unremarkable. No acute fracture. TUBES, LINES AND DEVICES: Right-sided chest tube. No pneumothorax. OTHER FINDINGS: . . . IMPRESSION: 1. Right-sided chest tube. No pneumothorax. 2. Right basilar atelectasis.
[2025-02-27 09:52] VITALS: PULSE 137; RESP 16; O2SAT 96
[2025-02-27] MEDS: LEVOTHYROXINE SODIUM 100 MCG/5 ML INJ IV SCH (10:20)
--- NOTE | 2025-02-27 11:32 | DVHDS2 ---
Discharge Summary Date of Admission Feb 25, 2025 at 20:55 Date of Discharge: Feb 27, 2025 Labs/Diagnostic Data: Laboratory Results Test 02/27/25 04:45 02/26/25 05:45 02/25/25 22:09 02/25/25 14:40 White Blood Count 4.9 10^3/uL (4.4-10.8) Red Blood Count 4.08 10^6/uL (4.0-5.20) Hemoglobin 12.8 g/dL (12.2-16.2) Hematocrit 37.9 % (36.0-46.0) Mean Corpuscular Volume 93.0 fL (80.0-100.0) Mean Corpuscular Hemoglobin 31.4 pg (28.0-32.0) Mean Corpuscular Hemoglobin Concent 33.8 g/dL (32.0-36.0) Red Cell Distribution Width 16.8 % (11.8-14.3) Platelet Count 174 10^3/uL (140-450) Mean Platelet Volume 7.4 fL (6.9-10.8) Neutrophils (%) (Auto) 83.2 % (37.0-80.0) Lymphocytes (%) (Auto) 8.6 % (10.0-50.0) Monocytes (%) (Auto) 7.7 % (0.0-12.0) Eosinophils (%) (Auto) 0.4 % (0.0-7.0) Basophils (%) (Auto) 0.1 % (0.0-2.0) Neutrophils # (Auto) 4.0 10 ^3/uL (1.6-8.6) Lymphocytes # (Auto) 0.4 10 ^3/uL (0.4-5.4) Monocytes # (Auto) 0.4 10 ^3/uL (0-1.3) Eosinophils # (Auto) 0 10 ^3/uL (0-0.8) Basophils # (Auto) 0 10 ^3/uL (0-0.2) Nucleated Red Blood Cells 0.1 % Sodium Level 139 mmol/L (136-145) Potassium Level 3.7 mmol/L (3.5-5.1) Chloride Level 106 mmol/L (98-107) Carbon Dioxide Level 20 mmol/L (20-31) Anion Gap 13 (5-15) Blood Urea Nitrogen 7 mg/dL (9-23) Creatinine 0.37 mg/dL (0.550-1.02) Glomerular Filtration Rate Calc 97 mL/min (>90) BUN/Creatinine Ratio 18.9 (10.0-20.0) Serum Glucose 111 mg/dL (74-106) Calcium Level 9.2 mg/dL (8.7-10.4) Total Bilirubin 3.3 mg/dL (0.2-1.0) Aspartate Amino Transferase (AST) 41 U/L (13-40) Alanine Aminotransferase (ALT) 11 U/L (7-40) Alkaline Phosphatase 201 U/L (46-116) Total Protein 5.7 g/dL (5.7-8.2) Albumin 3.7 g/dL (3.2-4.8) Prothrombin Time 11.7 sec (9.3-11.8) Prothrombin Time INR 1.12 (0.9-1.15) Activated Partial Thromboplast Time 29.7 SEC (24.5-34.5) Hemoglobin A1c 4.6 % A1C (<5.7) Phosphorus Level 3.5 mg/dL (2.4-5.1) Magnesium Level 2.0 mg/dL (1.6-2.6) Direct Bilirubin 1.8 mg/dL (<0.3) Ammonia < 10 umol/L (11-32) Vitamin B12 Level 2545 pg/mL (211-911) Vitamin D 25-Hydroxy 43.1 ng/mL (30.0-100) Thyroid Stimulating Hormone (TSH) 27.16 uIU/mL (0.55-4.78) Urine Color Dark-yellow (Yellow) Urine Clarity Clear (Clear) Urine pH 6.5 (5.0-9.0) Urine Specific [place] 1.027 (1.001-1.035) Urine Protein Trace (Negative) Urine Ketones 1+ (Negative) Urine Blood Negative /uL (Negative) Urine Nitrite Negative (Negative) Urine Bilirubin Negative (Negative) Urine Urobilinogen Over mg/dL (Negative) Urine Leukocyte Esterase 2+ /uL (Negative) Urine RBC 17 /hpf (0 - 4) Urine Microscopic WBC 12 /HPF (0-5) Urine Squamous Epithelial Cells Few /hpf (<5) Urine Bacteria None seen /hpf (None Seen) Urine Mucus Few (None Seen) Urine Glucose Normal mg/dL (Normal) Test 02/25/25 13:59 Troponin I High Sensitivity 4 ng/L (</=34) Other Laboratory Tests 02/27/25 04:45 Brief Hx & Hospital Course: SEE DICTATED NOTE Condition at Discharge: Guarded Final Diagnosis/Problems List RIGHT PNEUMO Discharge Disposition: Acute Care Facility Discharge Instruct/Medications Diet: Regular Activity: No Restrictions, As Tolerated Follow Up/Referral: MARTHA ARMSTRONG Medications: PER JAN Discharge Statement: "Patient was advised to return to the ER or call 911 if any headaches, dizziness, shortness of breath, chest pain, abdominal pain, bleeding, fevers, or worsening of medical condition. Patient was counseled about treatment plan, medications, possible side effects, patientverbalized understanding. All questions were answered to the best of my ability. This discharge took greater then 30 minutes in planning, reviewing documentation, counseling the patient, and discussing with other team members." ASSESSMENT ASSESSMENT Assessment RIGHT PNEUMO Date of Service: Feb 27, 2025 Billing Provider: PADILLA OWENS MD Common Visit Codes: 55048-XVE/OBS DISCH DAY >30min PADILLA OWENS MD Feb 27, 2025 11:32
--- NOTE | 2025-02-27 11:50 | DVHDS ---
DATE OF DISCHARGE: 02/27/2025 TRANSFER SUMMARY HISTORY OF PRESENT ILLNESS: The patient is an 89-year-old lady who came with a history of falls and altered mental status and has history of dementia, liver failure, multiple falls, hypertension, hyperlipidemia and GERD, as well as compression fractures in the lumbar spine. HOSPITAL COURSE: The patient had a CT of the head that showed right posterior scalp swelling and hematoma. The patient had a hip CT that showed no acute fracture. The patient had a CT of the chest that showed right-sided pneumothorax with fractured ribs, T7 and possibly T8. The patient had a right-sided chest tube placed for the pneumothorax. The patient had uncontrolled hypothyroidism with a TSH of 27.1. Her bilirubin was elevated at 3.9. The patient will now be transferred to [place] for further management. I have discussed this plan with her [id number] at the bedside. Echocardiogram done showed ejection fraction of 60%-65%. FINAL DIAGNOSES: Therefore, * Status post fall with right clavicular and right rib fractures. * Right-sided pneumothorax, status post chest tube placement. * Liver failure with questionable liver cirrhosis. * Encephalopathy, metabolic. * Dementia. * History of lumbar compression fractures. * Uncontrolled hypothyroidism. * Hypertension. * Right scalp hematoma. * Thrombocytopenia. * Chemical code. Time spent in discharge plan, review of plan with the patient and family at bedside and nursing was 39 minutes. MD TANK Hagan/ANGELIKA TID: [id number] RECEIPT: [id number]
[2025-02-28] VITALS (9 sets, daily range): BP systolic 120–134; BP diastolic 61–99; PULSE 99–126; RESP 18–20; TEMP 97.2–98.3; O2SAT 92–100
--- NOTE | 2025-02-28 08:47 | DVH ---
EXAM: XY CHEST PORTABLE Indication: check chest tube placement Technique: Single frontal view of the chest was obtained Comparison: XY CHEST PORTABLE on DOS: 02/27/25, XY CHEST XRAY 1 VIEW on DOS: 02/25/25, XY CHEST PORTABL E on DOS: 02/25/25, XY CHEST XRAY 1 VIEW on DOS: 11/16/24, XY CHEST PORTABLE on DOS: 04/09/24 FINDINGS: Lines and Tubes: Right chest tube is seen. Lungs: Right middle lung consolidative opacity. Pleura: No effusion. No pneumothorax. Cardiomediastinal contours: Unremarkable. Atherosclerotic vascular calcifications of the thoracic ao rta are noted. Bones: Status post left hip arthroplasty. IMPRESSION: No acute cardiopulmonary disease.
[2025-02-28] MEDS ORDERED: BUSP5TAB51 PO (08:56)
--- NOTE | 2025-02-28 14:21 | DVHPN2 ---
Progress Note Date Seen: Feb 28, 2025 Medical Necessity Reason Pt with a Central, PICC or Fol: Yes The following are medically ne: Read Catheter Reason for read catheter: Strict I&O Subjective Patient reports: No new complaints Review of Systems: HEENT:Normal, CVS:Normal, RESPIRATORY:Normal, GI:Normal, :Normal, MSK:Normal, NEURO:Normal Objective vital signs Vital Sign Date Time Temp Pulse Resp B/P (MAP) Pulse Ox O2 Delivery O2 Flow Rate FiO2 02/28/25 13:00 97.5 120 20 133/87 (102) 96 97.5 02/28/25 10:35 Room Air* 0 21 Total Intake and Output 02/27/25 02/27/25 02/28/25 15:00 23:00 07:00 Intake Total 420 ml 300 ml 300 ml Output Total 500 ml Balance 420 ml 300 ml -200 ml medications Current Medications Medications Dose Ordered Sig/Tali Route Start Time Stop Time Status Last Admin Dose Admin Acetaminophen 650 mg Q6HP PRN PO 02/25/25 21:00 Ondansetron HCl 4 mg Q4HP PRN IV 02/25/25 21:00 02/28/25 07:09 4 MG Morphine Sulfate 2 mg Q4HPRN PRN IV 02/25/25 21:00 02/28/25 11:02 2 MG Sodium Chloride 1,000 ml @ 60 mls/hr [id number] IV 02/26/25 03:30 02/28/25 05:35 60 MLS/HR Lorazepam 0.5 mg Q8HP PRN IV 02/26/25 12:15 02/28/25 13:26 0.5 MG Levothyroxine Sodium 100 mcg DAILY IV 02/27/25 10:00 02/28/25 11:01 100 MCG Examination: GENERAL:Normal, HEENT:Normal, NECK:Normal, LUNGS:Normal, CVS:Normal, ABDOMEN:Normal, MSK:Normal, SKIN:Normal, NEURO:Normal, :Normal laboratory and microbiology Laboratory Tests 02/27/25 04:45 Test 02/27/25 04:45 Range/Units Serum Glucose 111 H 74-106 mg/dL Problem List/Assessment/Plan Problem List/Assessment/Plan #1 s/p fall with right clavicle/ right rib fractures #2 right pneumo s/p chest tube #3 liver failure ?liver cirrhosis #4 encephalopathy- metabolic #5 dementia #6 h/o lumber compression fractures #7 uncontrolled hypothyroidism: iv levothyroxine #8 htn #9 thrombocytopenia #10 right scalp hematoma long dw daughter- reviewed labs and plan of care advance care planning- chemical code- time spent 19mins await transfer to [place] Plan discussed with: Patient, Daughter My Orders My Orders Orders - PADILLA OWENS MD Procedure Category Date Status Time Chest Portable XY 02/28/25 Resulted 07:54 Basic Metabolic Panel LAB 03/01/25 Verified 06:00 Thyroid Stimulating LAB 03/01/25 Verified Hormone 05:00 Date of Service: Feb 28, 2025 Billing Provider: PADILLA OWENS MD Common Visit Codes: [id number] INP/OBS CARE(HIGH) PADILLA OWENS MD Feb 28, 2025 14:21
[2025-03-01] VITALS (7 sets, daily range): BP systolic 111–130; BP diastolic 75–94; PULSE 60–129; RESP 16–18; TEMP 97.7–97.8; O2SAT 90–96
[2025-03-01 07:00] LABS: Anion Gap 11 (5-15); Carbon Dioxide 22 mmol/L (20-31); Potassium 3.5 mmol/L (3.5-5.1); Sodium 141 mmol/L (136-145)
[2025-03-01 07:06] LABS: BUN/Creatinine Ratio 24.4 (10.0-20.0); Blood Urea Nitrogen 10 mg/dL (9-23); Glucose 93 mg/dL (74-106)
[2025-03-01 07:33] LABS: Calcium 8.7 mg/dL (8.7-10.4); Chloride 108 mmol/L (98-107)
--- NOTE | 2025-03-01 09:07 | DVH ---
INDICATION: rigth pneumo TECHNIQUE: Single frontal view of the chest was obtained COMPARISON: XY CHEST PORTABLE on DOS: 02/28/25, XY CHEST PORTABLE on DOS: 02/27/25, XY CHEST XRAY 1 VIE W on DOS: 02/25/25, XY CHEST PORTABLE on DOS: 02/25/25, XY CHEST XRAY 1 VIEW on DOS: 11/16/24, XY CHEST PORTABLE on DOS: 02/28/25 FINDINGS: Lines and Tubes: Right chest tube is seen. Lungs: Right middle lung consolidative opacity. Pleura: No effusion. No pneumothorax. Cardiomediastinal contours: Unremarkable. Atherosclerotic vascular calcifications of the thoracic ao rta are noted. Bones: Status post left hip arthroplasty. IMPRESSION: No acute cardiopulmonary disease.
--- NOTE | 2025-03-01 12:17 | DVHPN2 ---
Reviewed: Care Plan, H&P, Labs, Medications, Previous Orders, Radiology Changes from previous H/P or p: No Changes Objective Vitals Vital Signs Date Time Temp Pulse Resp B/P (MAP) Pulse Ox O2 Delivery O2 Flow Rate FiO2 03/01/25 09:00 97.7 107 18 130/92 (105) 93 97.7 03/01/25 07:45 Nasal Cannula* 2 28 Intake/Output Intake and Output 03/01/25 07:00 Intake Total 710 ml Output Total 525 ml Balance 185 ml Intake Oral 710 ml Output Urine Total 525 ml Medications Current Medications Medications Dose Ordered Sig/Tali Route Start Time Stop Time Status Last Admin Dose Admin Acetaminophen 650 mg Q6HP PRN PO 02/25/25 21:00 Ondansetron HCl 4 mg Q4HP PRN IV 02/25/25 21:00 02/28/25 07:09 4 MG Morphine Sulfate 2 mg Q4HPRN PRN IV 02/25/25 21:00 02/28/25 21:11 2 MG Sodium Chloride 1,000 ml @ 60 mls/hr [id number] IV 02/26/25 03:30 02/28/25 21:11 60 MLS/HR Lorazepam 0.5 mg Q8HP PRN IV 02/26/25 12:15 03/01/25 09:03 0.5 MG Levothyroxine Sodium 100 mcg DAILY IV 02/27/25 10:00 03/01/25 09:03 100 MCG Laboratory Results Laboratory Tests 02/27/25 04:45 03/01/25 05:41 Chemistry Test 03/01/25 05:41 Calcium Level 8.7 mg/dL (8.7-10.4) HgA1c, TSH Test 03/01/25 05:41 Thyroid Stimulating Hormone (TSH) 14.16 uIU/mL (0.55-4.78) H Urinalysis Test 02/25/25 14:40 Urine Color Dark-yellow (Yellow) Urine Clarity Clear (Clear) Urine pH 6.5 (5.0-9.0) Urine Specific [place] 1.027 (1.001-1.035) Urine Protein Trace (Negative) H Urine Ketones 1+ (Negative) H Urine Blood Negative /uL (Negative) Urine Nitrite Negative (Negative) Urine Bilirubin Negative (Negative) Urine Urobilinogen Over mg/dL (Negative) Urine Leukocyte Esterase 2+ /uL (Negative) Urine RBC 17 /hpf (0 - 4) Urine Microscopic WBC 12 /HPF (0-5) H Urine Squamous Epithelial Cells Few /hpf (<5) Urine Bacteria None seen /hpf (None Seen) Urine Mucus Few (None Seen) Urine Glucose Normal mg/dL (Normal) Labs and/or images reviewed: Labs reviewed by me, Image(s) reviewed by me Assessment/Plan Assessment/Plan Covering For Dr. Hinojosa #1 s/p fall with right clavicle/ right rib fractures #2 right pneumo s/p chest tube #3 liver failure ?liver cirrhosis #4 encephalopathy- metabolic #5 severe dementia #6 h/o lumber compression fractures #7 uncontrolled hypothyroidism: iv levothyroxine Synthroid 100 mcg po per day #8 htn #9 thrombocytopenia #10 right scalp hematoma Patient is not stable for transfer to [place] Time spent 50 minutes Advanced care planning time 20 minutes Patient is chemical code Plan discussed with: Patient Date of Service: Mar 01, 2025 Billing Provider: JACK WILSON MD Common Visit Codes: [id number] INP/OBS CARE(HIGH) Secondary Visit Codes: [id number] CARE PLAN 30 MINUTES JACK WILSON MD Mar 01, 2025 12:17
[2025-03-02] VITALS (8 sets, daily range): BP systolic 113–149; BP diastolic 59–93; PULSE 97–127; RESP 16–18; TEMP 97.2–98.1; O2SAT 90–100
--- NOTE | 2025-03-02 10:29 | DVHPN2 ---
Reviewed: Care Plan, H&P, Labs, Medications, Previous Orders, Radiology Changes from previous H/P or p: No Changes Objective Vitals Vital Signs Date Time Temp Pulse Resp B/P (MAP) Pulse Ox O2 Delivery O2 Flow Rate FiO2 03/02/25 09:00 98.0 107 16 118/59 (78) 93 98.0 03/01/25 20:00 Nasal Cannula* 2 28 Intake/Output Intake and Output 03/02/25 07:00 Intake Total 860 ml Output Total 1400 ml Balance -540 ml Intake Oral 860 ml Output Urine Total 1350 ml Chest Tube Drainage Total 50 ml Medications Current Medications Medications Dose Ordered Sig/Tali Route Start Time Stop Time Status Last Admin Dose Admin Acetaminophen 650 mg Q6HP PRN PO 02/25/25 21:00 Ondansetron HCl 4 mg Q4HP PRN IV 02/25/25 21:00 02/28/25 07:09 4 MG Morphine Sulfate 2 mg Q4HPRN PRN IV 02/25/25 21:00 03/01/25 21:44 2 MG Sodium Chloride 1,000 ml @ 60 mls/hr [id number] IV 02/26/25 03:30 03/01/25 15:40 60 MLS/HR Lorazepam 0.5 mg Q8HP PRN IV 02/26/25 12:15 03/01/25 18:38 0.5 MG Levothyroxine Sodium 100 mcg DAILY IV 02/27/25 10:00 03/01/25 09:03 100 MCG Laboratory Results Laboratory Tests 02/27/25 04:45 03/01/25 05:41 Urinalysis Test 02/25/25 14:40 Urine Color Dark-yellow (Yellow) Urine Clarity Clear (Clear) Urine pH 6.5 (5.0-9.0) Urine Specific [place] 1.027 (1.001-1.035) Urine Protein Trace (Negative) H Urine Ketones 1+ (Negative) H Urine Blood Negative /uL (Negative) Urine Nitrite Negative (Negative) Urine Bilirubin Negative (Negative) Urine Urobilinogen Over mg/dL (Negative) Urine Leukocyte Esterase 2+ /uL (Negative) Urine RBC 17 /hpf (0 - 4) Urine Microscopic WBC 12 /HPF (0-5) H Urine Squamous Epithelial Cells Few /hpf (<5) Urine Bacteria None seen /hpf (None Seen) Urine Mucus Few (None Seen) Urine Glucose Normal mg/dL (Normal) Microbiology Microbiology Date/Time Source Procedure Growth Status 03/01/25 16:15 Urine - [place] Urine Culture - Preliminary Resulted Labs and/or images reviewed: Labs reviewed by me, Image(s) reviewed by me Assessment/Plan Assessment/Plan Covering For Dr. Hinojosa Acute hypoxic respiratory failure: Oxygen by nasal cannula #1 s/p fall with right clavicle/ right rib fractures #2 right pneumo s/p chest tube #3 liver failure ?liver cirrhosis #4 encephalopathy- metabolic #5 severe dementia #6 h/o lumber compression fractures #7 uncontrolled hypothyroidism: iv levothyroxine Synthroid 100 mcg po per day #8 htn #9 thrombocytopenia #10 right scalp hematoma Not Stable for transfer to [place] Patient is not stable for transfer to [place] Time spent 50 minutes Patient is chemical code Plan discussed with: Patient My Orders Orders - JACK WILSON MD Procedure Category Date Status Time Urine Bacterial CRISPIN 03/01/25 In Process Culture 16:17 Date of Service: Mar 02, 2025 Billing Provider: JACK WILSON MD Common Visit Codes: [id number] INP/OBS CARE(HIGH) JACK WILSON MD Mar 02, 2025 10:29
[2025-03-03] VITALS (8 sets, daily range): BP systolic 125–159; BP diastolic 69–83; PULSE 85–104; RESP 17–20; TEMP 98.4–100.3; O2SAT 95–98
[2025-03-03] MEDS: ACETAMINOPHEN 325 MG TAB PO PRN (05:48)
--- NOTE | 2025-03-03 13:28 | DVHPN2 ---
Reviewed: Care Plan, H&P, Labs, Medications, Previous Orders, Radiology Changes from previous H/P or p: No Changes Objective Vitals Vital Signs Date Time Temp Pulse Resp B/P (MAP) Pulse Ox O2 Delivery O2 Flow Rate FiO2 03/03/25 12:46 99.6 88 18 136/83 (100) 98 99.6 03/03/25 08:00 Nasal Cannula* 2 28 Intake/Output Intake and Output 03/03/25 07:00 Intake Total 1510 ml Output Total 825 ml Balance 685 ml Intake Oral 1180 ml IV Total 330 ml Output Urine Total 825 ml Medications Current Medications Medications Dose Ordered Sig/Tali Route Start Time Stop Time Status Last Admin Dose Admin Acetaminophen 650 mg Q6HP PRN PO 02/25/25 21:00 Ondansetron HCl 4 mg Q4HP PRN IV 02/25/25 21:00 02/28/25 07:09 4 MG Morphine Sulfate 2 mg Q4HPRN PRN IV 02/25/25 21:00 03/03/25 11:45 2 MG Sodium Chloride 1,000 ml @ 60 mls/hr [id number] IV 02/26/25 03:30 03/03/25 00:21 60 MLS/HR Lorazepam 0.5 mg Q8HP PRN IV 02/26/25 12:15 03/01/25 18:38 0.5 MG Levothyroxine Sodium 100 mcg DAILY IV 02/27/25 10:00 03/03/25 10:12 100 MCG Laboratory Results Laboratory Tests 02/27/25 04:45 03/01/25 05:41 Urinalysis Test 02/25/25 14:40 Urine Color Dark-yellow (Yellow) Urine Clarity Clear (Clear) Urine pH 6.5 (5.0-9.0) Urine Specific [place] 1.027 (1.001-1.035) Urine Protein Trace (Negative) H Urine Ketones 1+ (Negative) H Urine Blood Negative /uL (Negative) Urine Nitrite Negative (Negative) Urine Bilirubin Negative (Negative) Urine Urobilinogen Over mg/dL (Negative) Urine Leukocyte Esterase 2+ /uL (Negative) Urine RBC 17 /hpf (0 - 4) Urine Microscopic WBC 12 /HPF (0-5) H Urine Squamous Epithelial Cells Few /hpf (<5) Urine Bacteria None seen /hpf (None Seen) Urine Mucus Few (None Seen) Urine Glucose Normal mg/dL (Normal) Microbiology Microbiology Date/Time Source Procedure Growth Status 03/01/25 16:15 Urine - [place] Urine Culture - Final Complete Labs and/or images reviewed: Labs reviewed by me, Image(s) reviewed by me Assessment/Plan Assessment/Plan Covering For Dr. Hinojosa Acute hypoxic respiratory failure: Oxygen by nasal cannula #1 s/p fall with right clavicle/ right rib fractures #2 right pneumo s/p chest tube #3 liver failure ?liver cirrhosis #4 encephalopathy- metabolic #5 severe dementia #6 h/o lumber compression fractures #7 uncontrolled hypothyroidism: iv levothyroxine Synthroid 100 mcg po per day #8 htn #9 thrombocytopenia #10 right scalp hematoma Not Stable for transfer to [place] Patient is not stable for transfer to [place] Time spent 46 minutes Patient is chemical code Plan discussed with: Patient Date of Service: Mar 03, 2025 Billing Provider: JACK WILSON MD Common Visit Codes: [id number] INP/OBS CARE(HIGH) JACK WILSON MD Mar 03, 2025 13:28
--- NOTE | 2025-03-03 16:37 | DVH ---
CHEST RADIOGRAPH Indication: CHEST TUBE PLACEMENT Technique: Single frontal view of the chest was obtained Comparison: XY CHEST PORTABLE on DOS: 03/01/25 FINDINGS: Lines and Tubes: Right chest tube again demonstrated. Lungs and Pleura: Right middle lung patchy airspace disease again noted. No effusion. No pneumothorax. Cardiomediastinal contours: Unchanged Bones: No acute osseous abnormality. IMPRESSION: 1. Redemonstration of right-sided chest tube. 2. Similar right middle lung patchy airspace disease.
[2025-03-04] VITALS (7 sets, daily range): BP systolic 128–147; BP diastolic 71–91; PULSE 79–98; RESP 16–95; TEMP 97.3–99.3; O2SAT 92–96
--- NOTE | 2025-03-04 11:12 | DVHPN2 ---
Progress Note Date Seen: Mar 04, 2025 Medical Necessity Reason Pt with a Central, PICC or Fol: Yes The following are medically ne: Read Catheter Reason for read catheter: Strict I&O Subjective Patient reports: No new complaints Review of Systems: HEENT:Normal, CVS:Normal, RESPIRATORY:Normal, GI:Normal, :Normal, MSK:Normal, NEURO:Normal Objective vital signs Vital Sign Date Time Temp Pulse Resp B/P (MAP) Pulse Ox O2 Delivery O2 Flow Rate FiO2 03/04/25 09:00 99.3 91 22 147/90 (109) 92 99.3 03/04/25 08:00 Nasal Cannula* 2 28 Total Intake and Output 03/03/25 03/03/25 03/04/25 15:00 23:00 07:00 Intake Total 500 ml 250 ml Output Total 300 ml 400 ml Balance 200 ml -150 ml medications Current Medications Medications Dose Ordered Sig/Tali Route Start Time Stop Time Status Last Admin Dose Admin Acetaminophen 650 mg Q6HP PRN PO 02/25/25 21:00 Ondansetron HCl 4 mg Q4HP PRN IV 02/25/25 21:00 02/28/25 07:09 4 MG Morphine Sulfate 2 mg Q4HPRN PRN IV 02/25/25 21:00 03/03/25 21:19 2 MG Lorazepam 0.5 mg Q8HP PRN IV 02/26/25 12:15 03/04/25 03:06 0.5 MG Levothyroxine Sodium 100 mcg QAM@0600 PO 03/05/25 06:00 UNV Examination: GENERAL:Normal, HEENT:Normal, NECK:Normal, LUNGS:Normal, LUNGS:Abnormal (on oxygen, right chest tube), CVS:Normal, ABDOMEN:Normal, MSK:Normal, SKIN:Normal, NEURO:Normal, :Normal laboratory and microbiology Laboratory Tests 03/01/25 05:41 02/27/25 04:45 Test 03/01/25 05:41 Range/Units Serum Glucose 93 74-106 mg/dL Microbiology Date/Time Source Procedure Growth Status 03/01/25 16:15 Urine - [place] Urine Culture - Final Complete Problem List/Assessment/Plan Problem List/Assessment/Plan #1 s/p fall with right clavicle/ right rib fractures #2 right pneumo s/p chest tube- water seal #3 liver failure ?liver cirrhosis #4 encephalopathy- metabolic #5 dementia #6 h/o lumber compression fractures #7 uncontrolled hypothyroidism: po levothyroxine #8 htn #9 thrombocytopenia #10 right scalp hematoma long dw daughter- reviewed labs and plan of care advance care planning- dnr- time spent 19mins await transfer to [place] Plan discussed with: Patient My Orders My Orders Orders - PADILLA OWENS MD Procedure Category Date Status Time Chest Tube YOVANY 03/04/25 Transmitted 11:03 Levothyroxine Tablet PHA 03/05/25 Transmitted (Synthroid Tablet) 06:00 Chest Portable XY 03/05/25 Transmitted 06:00 Dietary Evaluation Review Recommendations by RD: Increase Calorie Intake, Protein Supplementation Comments: 1) Continue liberalizing diet 2) Ensure Enlive 240ml TID 3) Continue current POC Expected Outcomes/Goals: To meet >75% estimated needs Fu 2-3 days Interpretation of weight loss: >10% in 6 months Protein Calorie Malnutrition: N/A Is there a minimum of two crit: No Date of Service: Mar 04, 2025 Billing Provider: PADILLA OWENS MD Common Visit Codes: [id number] INP/OBS CARE(HIGH) Secondary Visit Codes: [id number] CARE PLAN 30 MINUTES PADILLA OWENS MD Mar 04, 2025 11:12
[2025-03-05 01:00] VITALS: BP 128/72; PULSE 84; RESP 28; TEMP 97.3; O2SAT 84
[2025-03-05 05:00] VITALS: BP 140/81; PULSE 82; RESP 28; TEMP 97.5; O2SAT 95
[2025-03-05] MEDS: LEVOTHYROXINE SODIUM 100 MCG TAB PO SCH (06:12)
--- NOTE | 2025-03-05 07:20 | DVH ---
EXAM: XR Chest, 1 View CLINICAL INDICATION: right pneumo TECHNIQUE: Frontal view of the chest. COMPARISON: XY CHEST PORTABLE on DOS: 03/03/25, XY CHEST PORTABLE on DOS: 03/01/25, XY CHEST PORTABLE on DOS: 02/28/25, XY CHEST PORTABLE on DOS: 02/27/25, XY CHEST XRAY 1 VIEW on DOS: 02/25/25 FINDINGS: LUNGS AND PLEURAL SPACES: See below. HEART: Unremarkable. No cardiomegaly. MEDIASTINUM: Unremarkable. Normal mediastinal contour. BONES/JOINTS: Unremarkable. No acute fracture. TUBES, LINES AND DEVICES: Right-sided chest tube. Increasing right basilar airspace disease. No pn eumothorax. OTHER FINDINGS: . . . IMPRESSION: Right-sided chest tube. Increasing right basilar airspace disease. No pneumothorax.
[2025-03-05 08:45] VITALS: BP 126/74; PULSE 87; RESP 18; TEMP 98.6; O2SAT 93
--- NOTE | 2025-03-05 11:06 | DVHPN2 ---
Progress Note Date Seen: Mar 05, 2025 Medical Necessity Reason Pt with a Central, PICC or Fol: Yes The following are medically ne: Read Catheter Reason for read catheter: Strict I&O Subjective Patient reports: No new complaints Review of Systems: HEENT:Normal, CVS:Normal, RESPIRATORY:Normal, GI:Normal, :Normal, MSK:Normal, NEURO:Normal Objective vital signs Vital Sign Date Time Temp Pulse Resp B/P (MAP) Pulse Ox O2 Delivery O2 Flow Rate FiO2 03/05/25 08:45 98.6 87 18 126/74 (91) 93 98.6 03/05/25 08:00 Nasal Cannula* 3 32 Total Intake and Output 03/04/25 03/04/25 03/05/25 15:00 23:00 07:00 Intake Total 300 ml 1120 ml Output Total 525 ml 500 ml Balance -225 ml 620 ml medications Current Medications Medications Dose Ordered Sig/Tali Route Start Time Stop Time Status Last Admin Dose Admin Acetaminophen 650 mg Q6HP PRN PO 02/25/25 21:00 Ondansetron HCl 4 mg Q4HP PRN IV 02/25/25 21:00 02/28/25 07:09 4 MG Morphine Sulfate 2 mg Q4HPRN PRN IV 02/25/25 21:00 03/05/25 01:50 2 MG Lorazepam 0.5 mg Q8HP PRN IV 02/26/25 12:15 03/04/25 03:06 0.5 MG Levothyroxine Sodium 100 mcg QAM@0600 PO 03/05/25 06:00 03/05/25 06:12 100 MCG Examination: GENERAL:Normal, HEENT:Normal, NECK:Normal, LUNGS:Normal, LUNGS:Abnormal (right chest tube, no air leak), CVS:Normal, ABDOMEN:Normal, MSK:Normal, SKIN:Normal, NEURO:Normal, :Normal laboratory and microbiology Laboratory Tests 03/01/25 05:41 02/27/25 04:45 Test 03/01/25 05:41 Range/Units Serum Glucose 93 74-106 mg/dL Microbiology Date/Time Source Procedure Growth Status 03/01/25 16:15 Urine - [place] Urine Culture - Final Complete Problem List/Assessment/Plan Problem List/Assessment/Plan #1 s/p fall with right clavicle/ right rib fractures #2 right pneumo s/p chest tube- removed, purulent drainage at site, iv zosyn #3 liver failure ?liver cirrhosis #4 encephalopathy- metabolic #5 dementia #6 h/o lumber compression fractures #7 uncontrolled hypothyroidism: po levothyroxine #8 htn #9 thrombocytopenia #10 right scalp hematoma #11 ? right pneumonia/aspiration: check xray in am, iv zosyn long dw daughter- reviewed labs and plan of care advance care planning- dnr- time spent 19mins await transfer to [place] Plan discussed with: Patient My Orders My Orders Orders - PADILLA OWENS MD Procedure Category Date Status Time Chest Tube YOVANY 03/04/25 In Process 11:03 Levothyroxine Tablet PHA 03/05/25 In Process (Synthroid Tablet) 06:00 Chest Portable XY 03/05/25 Resulted 06:00 DNR YOVANY 03/04/25 In Process 11:10 Discontinue Tele YOVANY 03/04/25 In Process 11:10 Transfer Orders XFER 03/04/25 Transmitted 11:10 Code Status CODE 03/04/25 Transmitted 16:16 Zosyn Extended PHA 03/05/25 Verified Infusion 11:15 Zosyn Extended PHA 03/05/25 Verified Infusion 14:00 Basic Metabolic Panel LAB 03/05/25 Verified 11:02 Complete Blood Count LAB 03/05/25 Verified 11:02 Chest Portable XY 03/06/25 Verified 06:00 Dietary Evaluation Review Recommendations by RD: Increase Calorie Intake, Protein Supplementation Comments: 1) Continue liberalizing diet 2) Ensure Enlive 240ml TID 3) Continue current POC Expected Outcomes/Goals: To meet >75% estimated needs Fu 2-3 days Interpretation of weight loss: >10% in 6 months Protein Calorie Malnutrition: N/A Is there a minimum of two crit: No Date of Service: Mar 05, 2025 Billing Provider: PADILLA OWENS MD Common Visit Codes: [id number] INP/OBS CARE(HIGH) PADILLA OWENS MD Mar 05, 2025 11:06
[2025-03-05 11:40] LABS: Basophils # (auto) 0 10 ^3/uL (0-0.2); Basophils % (auto) 0.3 % (0.0-2.0); Eosinophils # (auto) 0 10 ^3/uL (0-0.8); Eosinophils % (auto) 0.3 % (0.0-7.0); Hematocrit 36.4 % (36.0-46.0); Hemoglobin 12.3 g/dL (12.2-16.2); Lymphocytes # (auto) 0.5 10 ^3/uL (0.4-5.4); Lymphocytes % (auto) 7.7 % (10.0-50.0); Mean Corpuscular Hemoglobin 31.4 pg (28.0-32.0); Mean Corpuscular Hgb Conc. 33.7 g/dL (32.0-36.0); Mean Corpuscular Volume 93.2 fL (80.0-100.0); Monocytes # (auto) 0.6 10 ^3/uL (0-1.3); Monocytes % (auto) 9.6 % (0.0-12.0); Neutrophils # (auto) 5.4 10 ^3/uL (1.6-8.6); Neutrophils % (auto) 82.1 % (37.0-80.0); Nucleated Red Blood Cells % 0.1 %; Platelet Count (auto) 155 10^3/uL (140-450); Red Cell Distribution Width 16.5 % (11.8-14.3); White Blood Cell 6.6 10^3/uL (4.4-10.8)
[2025-03-05 11:48] LABS: Chloride 106 mmol/L (98-107); Sodium 138 mmol/L (136-145)
[2025-03-05 11:49] LABS: Anion Gap 9 (5-15); Carbon Dioxide 23 mmol/L (20-31)
[2025-03-05 11:55] LABS: BUN/Creatinine Ratio 28.1 (10.0-20.0); Blood Urea Nitrogen 9 mg/dL (9-23); Glucose 99 mg/dL (74-106)
[2025-03-05 11:56] LABS: Potassium 3.1 mmol/L (3.5-5.1)
[2025-03-05] MEDS: PIPERACILLIN-TAZOB 3.375GM 100 ML IV ONE (12:03)
[2025-03-05 12:04] LABS: Urine Bacteria FEW /hpf (None Seen); Urine Blood TRACE /uL (Negative); Urine Clarity Turbid (Clear); Urine Color Light-Orange (Yellow); Urine Mucus FEW (None Seen); Urine Protein, UAD 1+ (Negative); Urine Specific Gravity 1.018 (1.001-1.035); Urine Squamous Epithelial Cell FEW /hpf (<5); Urine Urobilinogen 8 mg/dL (Negative); Urine WBC 205 /HPF (0-5); Urine pH 7.5 (5.0-9.0)
[2025-03-05 12:54] VITALS: BP 121/81; PULSE 94; RESP 18; TEMP 99.2; O2SAT 96
[2025-03-05] MEDS: POTASSIUM EFFERVESENT TAB 25 MEQ PO ONE (14:21)
[2025-03-05 17:41] VITALS: BP 136/75; PULSE 104; RESP 18; TEMP 99.8; O2SAT 91
[2025-03-05] MEDS: PIPERACILLIN-TAZOB 3.375GM 100 ML IV SCH (17:43)
[2025-03-05 21:00] VITALS: BP 135/56; PULSE 96; RESP 18; TEMP 98.6; O2SAT 95
[2025-03-06 01:00] VITALS: BP 113/82; PULSE 91; RESP 17; TEMP 98.3; O2SAT 96
[2025-03-06 05:00] VITALS: BP 143/77; PULSE 91; RESP 18; TEMP 97.9; O2SAT 97
--- NOTE | 2025-03-06 07:24 | DVH ---
EXAM: XR Chest, 1 View CLINICAL INDICATION: RIGHT PNEUMONIA TECHNIQUE: Frontal view of the chest. COMPARISON: XY CHEST PORTABLE on DOS: 03/05/25, XY CHEST PORTABLE on DOS: 03/03/25, XY CHEST PORTABLE on DOS: 03/01/25, XY CHEST PORTABLE on DOS: 02/28/25, XY CHEST PORTABLE on DOS: 02/27/25 FINDINGS: LUNGS AND PLEURAL SPACES: Interstitial and patchy airspace disease of the right lung field. No con solidation. No pneumothorax. HEART: Unremarkable. No cardiomegaly. MEDIASTINUM: Unremarkable. Normal mediastinal contour. BONES/JOINTS: Unremarkable. No acute fracture. OTHER FINDINGS: . . . IMPRESSION: Interstitial and patchy airspace disease of the right lung field.
[2025-03-06 08:05] VITALS: PULSE 85; RESP 19; O2SAT 99
[2025-03-06 09:00] VITALS: BP 121/69; PULSE 85; RESP 19; TEMP 97.9; O2SAT 99
--- NOTE | 2025-03-06 11:39 | DVHPN2 ---
Progress Note Date Seen: Mar 06, 2025 Medical Necessity Reason Pt with a Central, PICC or Fol: Yes The following are medically ne: Read Catheter Reason for read catheter: Strict I&O Subjective Patient reports: No new complaints Review of Systems: HEENT:Normal, CVS:Normal, RESPIRATORY:Normal, GI:Normal, :Normal, MSK:Normal, NEURO:Normal Objective vital signs Vital Sign Date Time Temp Pulse Resp B/P (MAP) Pulse Ox O2 Delivery O2 Flow Rate FiO2 03/06/25 09:00 97.9 85 19 121/69 (86) 99 97.9 03/05/25 20:00 Nasal Cannula* 3 32 Total Intake and Output 03/05/25 03/05/25 03/06/25 15:00 23:00 07:00 Intake Total 250 ml 250 ml Output Total 350 ml 175 ml Balance -100 ml 75 ml medications Current Medications Medications Dose Ordered Sig/Tali Route Start Time Stop Time Status Last Admin Dose Admin Acetaminophen 650 mg Q6HP PRN PO 02/25/25 21:00 03/06/25 11:19 650 MG Ondansetron HCl 4 mg Q4HP PRN IV 02/25/25 21:00 02/28/25 07:09 4 MG Morphine Sulfate 2 mg Q4HPRN PRN IV 02/25/25 21:00 03/06/25 01:55 2 MG Lorazepam 0.5 mg Q8HP PRN IV 02/26/25 12:15 03/05/25 14:21 0.5 MG Levothyroxine Sodium 100 mcg QAM@0600 PO 03/05/25 06:00 03/06/25 05:25 100 MCG Piperacillin Sod/ Tazobactam Sod 100 ml @ 25 mls/hr Q8H IV 03/05/25 18:00 03/06/25 10:19 25 MLS/HR Examination: GENERAL:Normal, HEENT:Normal, NECK:Normal, LUNGS:Normal, CVS:Normal (decreased right side), ABDOMEN:Normal, MSK:Normal, SKIN:Normal, NEURO:Normal, :Normal laboratory and microbiology Laboratory Tests 03/05/25 11:30 Test 03/05/25 11:30 Range/Units Serum Glucose 99 74-106 mg/dL Microbiology Date/Time Source Procedure Growth Status 03/05/25 11:55 Urine - Catheterized Urine Culture - Preliminary Resulted Problem List/Assessment/Plan Problem List/Assessment/Plan #1 s/p fall with right clavicle/ right rib fractures #2 right pneumo s/p chest tube- removed chest tube, purulent drainage at site, iv zosyn #3 liver failure ?liver cirrhosis #4 encephalopathy- metabolic #5 dementia #6 h/o lumber compression fractures #7 uncontrolled hypothyroidism: po levothyroxine #8 htn #9 thrombocytopenia #10 right scalp hematoma #11 ? right pneumonia/aspiration: check xray in am, iv zosyn long dw daughter- reviewed labs and plan of care advance care planning- dnr- time spent 19mins await transfer to [place] Plan discussed with: Patient My Orders My Orders Orders - PADILLA OWENS MD Procedure Category Date Status Time Urine Bacterial CRISPIN 03/05/25 In Process Culture 11:53 Dietary Evaluation Review Recommendations by RD: Increase Calorie Intake, Protein Supplementation Comments: 1) Continue liberalizing diet 2) Ensure Enlive 240ml TID 3) Continue current POC Expected Outcomes/Goals: To meet >75% estimated needs Fu 2-3 days Interpretation of weight loss: >10% in 6 months Protein Calorie Malnutrition: N/A Is there a minimum of two crit: No Date of Service: Mar 06, 2025 Billing Provider: PADILLA OWENS MD Common Visit Codes: [id number] INP/OBS CARE(HIGH) PADILLA OWENS MD Mar 06, 2025 11:39
[2025-03-06 13:00] VITALS: BP 100/64; PULSE 81; RESP 18; TEMP 98.6; O2SAT 96
[2025-03-06] MEDS: POTASSIUM EFFERVESENT TAB 25 MEQ PO ONE (13:10)
[2025-03-06 17:00] VITALS: BP 99/61; PULSE 75; RESP 18; TEMP 97.8; O2SAT 99
[2025-03-06] MEDS ORDERED: DICL50TA2 PO ×2 (19:03→19:26)
[2025-03-06] MEDS ORDERED: DICL1GEL59 TOP (19:25)
== END 2025-03-06 19:00 | disposition short-term general hospital (02) | DRG 963 ==
LOC: EDBD → ER 12:08 → EDBD 12:08 → OVERFLOW 20:55 → TELE-WESTW 02-28 10:35 → WEST WING 03-05 00:24
PROVIDERS: ADMIT Internal Medicine; ATTEND Internal Medicine
PROC: 0W9930Z Drainage of Right Pleural Cavity with Drainage Device, Percutaneous Approach (ICD-10-PCS; principal; 2025-02-25)
DX: S27.2XXA Traumatic hemopneumothorax, initial encounter (principal); G93.41 Metabolic encephalopathy; S72.091A Other fracture of head and neck of right femur, initial encounter for closed fracture; J96.01 Acute respiratory failure with hypoxia; N39.0 Urinary tract infection, site not specified; S22.41XA Multiple fractures of ribs, right side, initial encounter for closed fracture; S42.021A Displaced fracture of shaft of right clavicle, initial encounter for closed fracture; E03.9 Hypothyroidism, unspecified; D69.6 Thrombocytopenia, unspecified; K72.90 Hepatic failure, unspecified without coma; S00.03XA Contusion of scalp, initial encounter; I10 Essential (primary) hypertension; E78.5 Hyperlipidemia, unspecified; K21.9 Gastro-esophageal reflux disease without esophagitis; F32.9 Major depressive disorder, single episode, unspecified; F02.C0 Dementia in other diseases classified elsewhere, severe, without behavioral disturbance, psychotic disturbance, mood disturbance, and anxiety; G30.9 Alzheimer's disease, unspecified; Z79.1 Long term (current) use of non-steroidal anti-inflammatories (NSAID); Z79.2 Long term (current) use of antibiotics; Z90.49 Acquired absence of other specified parts of digestive tract; W18.39XA Other fall on same level, initial encounter; Y93.89 Activity, other specified; Y92.89 Other specified places as the place of occurrence of the external cause; Y99.8 Other external cause status
CPT/HCPCS: 32551; 36415; 70450; 71045; 71250; 72170; 73700; 80048; 80053; 80076; 81001; 82140; 82306; 82607; 83036; 83735; 84100; 84443; 84484; 85025; 85610; 85730; 87086; 87088; 87186; 93306; 96372; 96374; 96375; 96376; 97163; 99291; G0378; J2003; J2405; J2543; J3490

== ENCOUNTER 2025-03-06 14:32 | Emergency (ER) | payer OTHER ==
[~2025-03-06] VITALS: Ht 157.5 cm; Wt 69.2 kg
[~2025-03-06 14:32] MED LIST changes: +BUSP5TAB51 PO
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
[2025-03-06] MEDS ORDERED: DICL50TA2 PO ×2 (19:03→19:26)
[2025-03-06] MEDS ORDERED: DICL1GEL59 TOP (19:25)
[2025-03-06 19:29] VITALS: BP 140/73; PULSE 75; RESP 17; TEMP 98.2; O2SAT 97
== END 2025-03-06 19:30 | disposition home or self-care (01) ==
LOC: ER 14:32
DX: S20.212A Contusion of left front wall of thorax, initial encounter (principal); I10 Essential (primary) hypertension; E11.9 Type 2 diabetes mellitus without complications; E78.5 Hyperlipidemia, unspecified; Z90.49 Acquired absence of other specified parts of digestive tract; Z79.899 Other long term (current) drug therapy; Z88.6 Allergy status to analgesic agent; V89.2XXA Person injured in unspecified motor-vehicle accident, traffic, initial encounter; Y93.89 Activity, other specified; Y92.488 Other paved roadways as the place of occurrence of the external cause; Y99.8 Other external cause status
CPT/HCPCS: 71101